=== PATIENT | male | born 1955 | race Caucasian/White ===

== ENCOUNTER → 2016-08-09 | Outpatient (REF) | payer OTHER ==
[2016-08-09 16:01] LABS: MEAN CORPUSCULAR VOLUME 91.6 fl (80.0-96.0); RED CELL DISTRIBUTION WIDTH 11.8 % (11.5-14.5); WHITE BLOOD COUNT 5.5 K/mm3 (4.0-10.0)
[2016-08-09 16:11] LABS: ANION GAP 7 MEQ/L (8-16); BLOOD UREA NITROGEN 18 MG/DL (7-18); CARBON DIOXIDE LEVEL 30 MEQ/L (21-32); CHLORIDE LEVEL 104 MEQ/L (98-107); CREATININE FOR GFR 0.99 MG/DL (0.70-1.30); GLOMERULAR FILTRATION RATE > 60.0 (>49); GLUCOSE, FASTING 83 MG/DL (80-110); MAGNESIUM LEVEL 2.3 MG/DL (1.8-2.4); POTASSIUM SERUM 4.3 MEQ/L (3.5-5.1); SODIUM LEVEL 141 MEQ/L (136-145)
== END ==
LOC: M SFHCPLAZ 14:06
PROVIDERS: ATTEND Family Medicine
DX: I11.9 Hypertensive heart disease without heart failure (principal); I49.3 Ventricular premature depolarization

== ENCOUNTER → 2016-10-09 | Outpatient (CLI) | payer OTHER ==
[2016-10-09 18:40] LABS: ALBUMIN 4.2 GM/DL (3.2-5.2); ALBUMIN/GLOBULIN RATIO 1.35 (1.00-1.93); ALKALINE PHOSPHATASE 50 U/L (45-117); ALT/SGPT 26 U/L (12-78); ANION GAP 6 MEQ/L (8-16); AST/SGOT 17 U/L (15-37); BILIRUBIN,TOTAL 0.6 MG/DL (0.2-1.0); BLOOD UREA NITROGEN 19 MG/DL (7-18); CALCIUM LEVEL 8.7 MG/DL (8.8-10.2); CARBON DIOXIDE LEVEL 28 MEQ/L (21-32); CHLORIDE LEVEL 105 MEQ/L (98-107); CHOLESTEROL LEVEL 172 MG/DL (<200); CREATININE FOR GFR 0.91 MG/DL (0.70-1.30); GLOMERULAR FILTRATION RATE > 60.0 (>49); GLUCOSE, FASTING 80 MG/DL (80-110); POTASSIUM SERUM 4.4 MEQ/L (3.5-5.1); SODIUM LEVEL 139 MEQ/L (136-145); TOTAL PROTEIN 7.3 GM/DL (6.4-8.2); TRIGLYCERIDES LEVEL 154 MG/DL (<150)
[2016-10-09 18:51] LABS: MEAN CORPUSCULAR HEMOGLOBIN 31.6 pg (27.0-33.0); MEAN CORPUSCULAR HGB CONC 34.2 g/dl (32.0-36.5); MEAN CORPUSCULAR VOLUME 92.3 fl (80.0-96.0); PLATELET COUNT, AUTOMATED 215 k/mm3 (150-450); RED CELL DISTRIBUTION WIDTH 12.2 % (11.5-14.5); WHITE BLOOD COUNT 5.5 K/mm3 (4.0-10.0)
[2016-10-09 19:55] LABS: BANDS 1 % (< 11); BASOPHILS 1 % (0-4); EOSINOPHILS 3 % (0-5)
== END ==
LOC: M WUC 12:46
PROVIDERS: ATTEND Family Medicine
DX: D64.9 Anemia, unspecified (principal); R73.01 Impaired fasting glucose; E78.4 Other hyperlipidemia

== ENCOUNTER → 2017-02-01 | Outpatient (CLI) | payer OTHER ==
--- NOTE | 2017-02-04 07:47 | REP ---
PA and lateral chest: Comparison is 12/26/2012. The lung morales are clear. Cardiac size is borderline enlarged, unchanged. The ravindra, mediastinum, and bony thorax are unremarkable. There is no interval change. Impression: There are no acute cardiopulmonary findings. Signed by Ramses Amin MD 02/01/2017 04:22 P
== END ==
LOC: M ADAMS 15:50
PROVIDERS: ATTEND Family Medicine
DX: R05 Cough (principal)

== ENCOUNTER → 2017-02-01 | Outpatient (REF) | payer OTHER ==
[2017-02-01 19:29] LABS: MEAN CORPUSCULAR HEMOGLOBIN 32.7 pg (27.0-33.0); MEAN CORPUSCULAR HGB CONC 34.5 g/dl (32.0-36.5); MEAN CORPUSCULAR VOLUME 94.8 fl (80.0-96.0); WHITE BLOOD COUNT 7.2 K/mm3 (4.0-10.0)
[2017-02-01 20:03] LABS: ANION GAP 8 MEQ/L (8-16); BLOOD UREA NITROGEN 24 MG/DL (7-18); CARBON DIOXIDE LEVEL 28 MEQ/L (21-32); CHLORIDE LEVEL 106 MEQ/L (98-107); CREATININE FOR GFR 0.99 MG/DL (0.70-1.30); GLOMERULAR FILTRATION RATE > 60.0 (>49); GLUCOSE, FASTING 67 MG/DL (80-110); POTASSIUM SERUM 4.3 MEQ/L (3.5-5.1); SODIUM LEVEL 142 MEQ/L (136-145)
[2017-02-01 20:04] LABS: ALBUMIN 4.1 GM/DL (3.2-5.2); ALBUMIN/GLOBULIN RATIO 1.17 (1.00-1.93); ALKALINE PHOSPHATASE 51 U/L (45-117); ALT/SGPT 29 U/L (12-78); AST/SGOT 15 U/L (15-37); BILIRUBIN,TOTAL 0.4 MG/DL (0.2-1.0); FREE T4 0.81 NG/DL (0.76-1.46); TOTAL PROTEIN 7.6 GM/DL (6.4-8.2)
== END ==
LOC: M SFHCADAM 15:45
PROVIDERS: ATTEND Family Medicine
DX: R53.83 Other fatigue (principal)

== ENCOUNTER → 2017-02-15 | Outpatient (CLI) | payer OTHER ==
--- NOTE | 2017-02-18 08:52 | ECHO ---
DATE OF PROCEDURE: 02/15/2017 AGE: 62 GENDER: Male REFERRING PHYSICIAN: Dr. Diez. HEIGHT: 71 inches. WEIGHT: 242 pounds. BODY SURFACE AREA: 2.29 sq m. OUTPATIENT: INDICATION: Dyspnea. MEASUREMENTS: 2D MEASUREMENTS: RV - 3.7 cm LV- 4.5 cm Septum - 1.3 cm Posterior wall - 1.3 cm Aortic root - 4.0 cm LA - 4.5 cm LVEF - 65% DOPPLER MEASUREMENTS: AV - 0.94 m/s LVOT - 0.7 m/s LVOT diameter - 2.8 cm MV-E: 55 A: 62 EA ratio 0.9 Early mitral deacceleration time 215 ms E-prime - 5.6 A-prime - 11 E/E prime ratio 10 PV - 0.6 m/s Pulmonary artery acceleration time 102 ms RVSP - 33 mmHg IVC - 1.6 cm COMMENTS: Normal sinus rhythm without intraventricular conduction disturbance. Technically challenging study in light of the patient's body habitus but diagnostically useful information was still obtained. Mildly dilated left atrium but normal left ventricular size. Right heart chambers were also normal in size. LV wall thickness was mildly increased symmetrically. On real-time imaging from the parasternal and apical projections, wall motion was symmetrical and normal to hyperkinetic. Slightly thickened mitral annulus but normal leaflet thickness and excursion with no posterior systolic buckling. Three equal size aortic cusps with mildly thickened cusp edges but adequate cusp separation. Mildly dilated aortic root. No apparent intracardiac mass or pericardial effusion. Color flow Doppler study taken from the parasternal and apical projection showed trace aortic, trace mitral and very mild tricuspid insufficiency. Guided continuous wave Doppler of his aortic valve showed a normal peak systolic velocity against LV outflow tract obstruction. Pulsed and continuous wave Doppler of his LV inflow tract taken from the apical four-chamber projection showed normal diastolic filling velocities against mitral stenosis. There was slightly more prominent late diastolic/atrial dependent filling pattern. There was a prolonged early mitral deceleration time and tissue Doppler evidence to support a degree of LV diastolic dysfunction but current estimated mean left atrial pressure was within normal limits. Pulsed and continuous wave Doppler of his pulmonary trunk showed a normal peak systolic velocity against RV outflow tract obstruction. His pulmonary artery acceleration time was slightly abbreviated suggestive of a borderline increased pulmonary vascular resistance. Guided continuous wave Doppler of his tricuspid valve allowed our estimation of his right ventricular systolic pressure (mildly increased). His inferior vena cava was of normal size with normal respiratory collapse against an elevated central venous pressure. CONCLUSIONS: Somewhat technically difficult study in light of his body habitus. Mild concentric left ventricle hypertrophy with preserved systolic function. Mildly dilated left atrium with Doppler evidence of an impairment of LV diastolic function but currently normal estimated mean left atrial pressure. Normal right heart chamber sizes and contraction with Doppler evidence of mild pulmonary hypertension. Normal IVC size and collapse against an elevated central venous pressure. Aortic valvular sclerosis with trace insufficiency. Mildly dilated aortic root. Slightly thickened mitral annulus without functional valvular abnormality. In light of his aortic root findings, a followup study would be suggested in 2 years time.
== END ==
LOC: M CARPUL 14:58
PROVIDERS: ATTEND Family Medicine
DX: R06.09 Other forms of dyspnea (principal)

== ENCOUNTER → 2017-10-28 | Outpatient (CLI) | payer OTHER ==
[2017-10-28 09:00] LABS: HEMATOCRIT 40.5 % (42.0-52.0); HEMOGLOBIN 13.9 g/dl (13.5-17.5); MEAN CORPUSCULAR HEMOGLOBIN 31.4 pg (27.0-33.0); MEAN CORPUSCULAR HGB CONC 34.3 g/dl (32.0-36.5); MEAN CORPUSCULAR VOLUME 91.4 fl (80.0-96.0); PLATELET COUNT, AUTOMATED 254 10^3/uL (150-450); RED BLOOD COUNT 4.43 10^6/uL (4.30-6.10); RED CELL DISTRIBUTION WIDTH 12.3 % (11.5-14.5); WHITE BLOOD COUNT 5.4 10^3/uL (4.0-10.0)
[2017-10-28 09:30] LABS: ALBUMIN/GLOBULIN RATIO 1.14 (1.00-1.93); ALKALINE PHOSPHATASE 55 U/L (45-117); ALT/SGPT 24 U/L (12-78); ANION GAP 7 MEQ/L (8-16); AST/SGOT 23 U/L (7-37); BILIRUBIN,TOTAL 0.5 MG/DL (0.2-1.0); BLOOD UREA NITROGEN 21 MG/DL (7-18); CALCIUM LEVEL 8.8 MG/DL (8.8-10.2); CARBON DIOXIDE LEVEL 27 MEQ/L (21-32); CHLORIDE LEVEL 108 MEQ/L (98-107); CHOLESTEROL LEVEL 186 MG/DL (<200); CHOLESTEROL RISK RATIO 5.636 (<5); CREATININE FOR GFR 1.01 MG/DL (0.70-1.30); FREE T4 0.89 NG/DL (0.76-1.46); GLOMERULAR FILTRATION RATE > 60.0 (>49); GLUCOSE, FASTING 123 MG/DL (70-100); HDL CHOLESTEROL 33 MG/DL (>40); LDL CHOLESTEROL 114.4 MG/DL (<100); NON-HDL-C 153 MG/DL; POTASSIUM SERUM 4.4 MEQ/L (3.5-5.1); SODIUM LEVEL 142 MEQ/L (136-145); TOTAL PROTEIN 7.5 GM/DL (6.4-8.2); TRIGLYCERIDES LEVEL 193 MG/DL (<150)
[2017-10-28 09:31] LABS: ESTIMATED AVERAGE GLUCOSE 137 MG/DL (60-110); HEMOGLOBIN A1c 6.4 %
[2017-10-28 11:08] LABS: TOTAL 25(OH) VITAMIN D 11.4 NG/ML (30.0-100.0); VITAMIN B12 LEVEL 369 PG/ML (247-911)
[2017-10-28 11:09] LABS: FOLATE 13.8 NG/ML (>5.4)
== END ==
LOC: M WUC 08:13
DX: R53.83 Other fatigue (principal)
CPT/HCPCS: 82746

== ENCOUNTER → 2018-01-28 | Outpatient (CLI) | payer OTHER ==
[2018-01-28 13:28] LABS: ANION GAP 6 MEQ/L (8-16); BLOOD UREA NITROGEN 23 MG/DL (7-18); CALCIUM LEVEL 8.8 MG/DL (8.8-10.2); CARBON DIOXIDE LEVEL 28 MEQ/L (21-32); CHLORIDE LEVEL 107 MEQ/L (98-107); CREATININE FOR GFR 1.07 MG/DL (0.70-1.30); GLOMERULAR FILTRATION RATE > 60.0 (>49); GLUCOSE, FASTING 116 MG/DL (70-100); POTASSIUM SERUM 4.6 MEQ/L (3.5-5.1); SODIUM LEVEL 141 MEQ/L (136-145)
[2018-01-28 13:57] LABS: TOTAL 25(OH) VITAMIN D 33.5 NG/ML (30.0-100.0)
[2018-01-28 14:46] LABS: ESTIMATED AVERAGE GLUCOSE 126 MG/DL (60-110)
== END ==
LOC: M WUC 09:13
DX: R73.03 Prediabetes (principal); E55.9 Vitamin D deficiency, unspecified
CPT/HCPCS: 83036

== ENCOUNTER → 2018-04-28 | Outpatient (CLI) | payer OTHER ==
[2018-05-05 15:05] LABS: SUMMARY SEE SEPARATE REPORT
== END ==
LOC: M SLEEP 19:31
DX: G47.33 Obstructive sleep apnea (adult) (pediatric) (principal)

== ENCOUNTER → 2018-05-29 | Outpatient (CLI) | payer OTHER | LOC: M ADAMS 08:27 | DX: J01.10 Acute frontal sinusitis, unspecified (principal) | CPT/HCPCS: 71046 ==

== ENCOUNTER → 2018-06-09 | Outpatient (CLI) | payer OTHER | LOC: M CARPUL 10:30 | DX: I77.810 Thoracic aortic ectasia (principal) | CPT/HCPCS: 93306 ==

== ENCOUNTER → 2018-07-02 | Outpatient (CLI) | payer OTHER ==
[~2018-07-02] MED LIST: ISOVUE-370 76% 100ML VIAL (Q9967) As Ordered ONE
--- NOTE | 2018-07-02 19:55 | REP ---
Clinical: Chronic cough Technique: Axial contrast enhanced images from the thoracic inlet to the upper abdomen with coronal and sagittal re-formations using 100 ml Isovue 370 intravenous contrast material. Comparison: None. Findings: Lung morales demonstrate minimal chronic scarring and interstitial changes. Subtle lingular and trace basilar atelectasis cannot be excluded. No focal consolidation. No effusion or pneumothorax. Tracheobronchial tree is patent. No obvious adenopathy. Mediastinum demonstrates atherosclerotic changes to the thoracic aorta and coronary arteries without aortic aneurysm. The heart is upper limits of normal. No pericardial effusion. Musculoskeletal structures demonstrate age-related degenerative changes without focal osseous abnormality. Limited upper abdomen demonstrates normal bilateral adrenal glands and mild fatty infiltration to the liver. Impression: 1. Chronic-appearing age-related interstitial changes and minimal scarring. Superimposed lingular and trace basilar atelectasis cannot be excluded. Electronically Signed by James Page MD 07/02/2018 07:47 P
== END ==
LOC: M RAD 14:10
PROVIDERS: ATTEND Family Medicine
DX: R05 Cough (principal); J98.4 Other disorders of lung
CPT/HCPCS: 71260; Q9967

== ENCOUNTER → 2018-08-22 | Outpatient (CLI) | payer OTHER ==
[2018-08-22 12:32] LABS: HEMOGLOBIN 14.4 g/dl (13.5-17.5); MEAN CORPUSCULAR HEMOGLOBIN 30.8 pg (27.0-33.0); MEAN CORPUSCULAR HGB CONC 32.7 g/dl (32.0-36.5); MEAN CORPUSCULAR VOLUME 94.2 fl (80.0-96.0); PLATELET COUNT, AUTOMATED 267 10^3/uL (150-450); RED BLOOD COUNT 4.67 10^6/uL (4.30-6.10); WHITE BLOOD COUNT 5.9 10^3/uL (4.0-10.0)
[2018-08-22 13:18] LABS: ALT/SGPT 32 U/L (12-78); BILIRUBIN,TOTAL 0.5 MG/DL (0.2-1.0); BLOOD UREA NITROGEN 21 MG/DL (7-18); CALCIUM LEVEL 8.8 MG/DL (8.8-10.2); CARBON DIOXIDE LEVEL 27 MEQ/L (21-32); CHLORIDE LEVEL 104 MEQ/L (98-107); CHOLESTEROL LEVEL 197 MG/DL (<200); CHOLESTEROL RISK RATIO 4.804 (<5); GLOMERULAR FILTRATION RATE > 60.0 (>49); GLUCOSE, FASTING 105 MG/DL (70-100); HDL CHOLESTEROL 41 MG/DL (>40); LDL CHOLESTEROL 103 MG/DL (<100); NON-HDL-C 156 MG/DL; POTASSIUM SERUM 4.8 MEQ/L (3.5-5.1); SODIUM LEVEL 138 MEQ/L (136-145); TOTAL PROTEIN 7.6 GM/DL (6.4-8.2); TRIGLYCERIDES LEVEL 266 MG/DL (<150)
[2018-08-22 13:52] LABS: HEMOGLOBIN A1c 6.8 %
== END ==
LOC: M WUC 09:27
PROVIDERS: ATTEND Family Medicine
DX: D64.9 Anemia, unspecified (principal); R73.03 Prediabetes

== ENCOUNTER → 2019-02-23 | Outpatient (REF) | payer OTHER ==
[2019-02-23 13:45] LABS: APPEARANCE, URINE CLEAR (CLEAR); BACTERIA, URINE AUTO NEGATIVE (NEGATIVE); BILIRUBIN, URINE AUTO NEGATIVE (NEGATIVE); BLOOD, URINE BLOOD NEGATIVE (NEGATIVE); COLOR, URINE YELLOW (YELLOW); GLUCOSE, URINE (UA) AUTO NEGATIVE (NEGATIVE); KETONE, URINE AUTO NEGATIVE (NEGATIVE); LEUKOCYTE ESTERASE, URINE AUTO NEGATIVE (NEGATIVE); MUCUS, URINE SMALL (NEGATIVE); NITRITE, URINE AUTO NEGATIVE (NEGATIVE); PROTEIN, URINE AUTO NEGATIVE (NEGATIVE); RBC, URINE AUTO 3 /HPF (0-3); SPECIFIC GRAVITY URINE AUTO 1.019 (1.002-1.035); SQUAMOUS EPITHELIAL CELL UR AU 0 /HPF (0-6); UROBILINOGEN, URINE AUTO 0.2 mg/dL (0.0-2.0); WBC, URINE AUTO 2 /HPF (0-3)
== END ==
LOC: M SFHCPLAZ 11:50
PROVIDERS: ATTEND Nurse Practitioner Family
DX: R31.9 Hematuria, unspecified (principal)

== ENCOUNTER → 2019-03-06 | Outpatient (CLI) | payer OTHER ==
--- NOTE | 2019-03-06 13:48 | REP ---
RENAL ULTRASOUND: REASON: Gross hematuria. PRIORS: None. FINDINGS: Multiple ultrasonographic images of the right kidney show the right kidney to measure 13.5 x 6.3 x 5.9 cm. The renal cortical echotexture is unremarkable. There are no masses. There is good corticomedullary differentiation. There is no hydronephrosis. There are no perinephric fluid collections. Multiple ultrasonographic images of the left kidney show the left kidney to measure 13.3 x 6 x 7.1 cm. The renal cortical echotexture is unremarkable. There are no masses. There is good corticomedullary differentiation. There is no hydronephrosis. There are no perinephric fluid collections. Imaging of the urinary bladder was obtained for the purpose of assessing urojet phenomenon. Color Doppler imaging shows urojet phenomenon at the UV junction bilaterally. Incidental note was made of a urinary bladder diverticulum. IMPRESSION: Unremarkable renal ultrasonography. Electronically Signed by Damon Short DO 03/06/2019 02:21 P
== END ==
LOC: M RAD 11:10
PROVIDERS: ATTEND Family Medicine
DX: R31.0 Gross hematuria (principal)

== ENCOUNTER → 2019-03-20 | Outpatient (CLI) | payer OTHER ==
[2019-03-20 19:02] LABS: APPEARANCE, URINE CLEAR (CLEAR); BACTERIA, URINE AUTO NEGATIVE (NEGATIVE); BILIRUBIN, URINE AUTO NEGATIVE (NEGATIVE); BLOOD, URINE BLOOD NEGATIVE (NEGATIVE); COLOR, URINE YELLOW (YELLOW); GLUCOSE, URINE (UA) AUTO NEGATIVE (NEGATIVE); KETONE, URINE AUTO NEGATIVE (NEGATIVE); LEUKOCYTE ESTERASE, URINE AUTO NEGATIVE (NEGATIVE); MUCUS, URINE SMALL (NEGATIVE); NITRITE, URINE AUTO NEGATIVE (NEGATIVE); PROTEIN, URINE AUTO NEGATIVE (NEGATIVE); RBC, URINE AUTO 1 /HPF (0-3); SQUAMOUS EPITHELIAL CELL UR AU 0 /HPF (0-6); UROBILINOGEN, URINE AUTO 0.2 mg/dL (0.0-2.0); WBC, URINE AUTO 1 /HPF (0-3)
[2019-03-20 19:12] LABS: BLOOD UREA NITROGEN 20 MG/DL (7-18); CALCIUM LEVEL 8.9 MG/DL (8.8-10.2); CARBON DIOXIDE LEVEL 28 MEQ/L (21-32); CHLORIDE LEVEL 107 MEQ/L (98-107); CREATININE FOR GFR 1.11 MG/DL (0.70-1.30); GLOMERULAR FILTRATION RATE > 60.0 (>49); GLUCOSE, FASTING 104 MG/DL (70-100); POTASSIUM SERUM 4.2 MEQ/L (3.5-5.1); SODIUM LEVEL 141 MEQ/L (136-145)
== END ==
LOC: M SMT 15:55
PROVIDERS: ATTEND Nurse Practitioner Family
DX: R31.0 Gross hematuria (principal); Z12.5 Encounter for screening for malignant neoplasm of prostate
CPT/HCPCS: 36415; 80048; 81001; 87086; 88108; G0103

== ENCOUNTER → 2019-03-26 | Outpatient (CLI) | payer OTHER ==
[2019-03-26 12:18] LABS: BLOOD UREA NITROGEN 21 MG/DL (7-18); CARBON DIOXIDE LEVEL 29 MEQ/L (21-32); CHLORIDE LEVEL 105 MEQ/L (98-107); CREATININE FOR GFR 0.97 MG/DL (0.70-1.30); GLOMERULAR FILTRATION RATE > 60.0 (>49); GLUCOSE, FASTING 102 MG/DL (70-100); POTASSIUM SERUM 4.3 MEQ/L (3.5-5.1); SODIUM LEVEL 141 MEQ/L (136-145)
[2019-03-26 13:19] LABS: HEMOGLOBIN A1c 5.7 %
== END ==
LOC: M WUC 08:27
PROVIDERS: ATTEND Family Medicine
DX: R73.03 Prediabetes (principal)

== ENCOUNTER → 2019-03-26 | Outpatient (CLI) | payer OTHER ==
--- NOTE | 2019-03-26 17:49 | REP ---
CT urography: CT abdomen and pelvis without and with IV contrast: History: Gross hematuria. Comparison renal sonography March 06, 2019. CT contrast dose: 100 ml of intravenous Isovue 370. CT findings: Preliminary digital automation and control engineer radiograph demonstrates an unremarkable bowel gas pattern. The patient is status post L4-5 posterior element fusion with metallic transpedicle screws. There is peribronchovascular consolidation and partial collapse in the posterobasal segment of the left lower lobe. This is new when compared with CT study of the chest July 02, 2018. The lung bases are otherwise clear. The liver and spleen are normal in size and homogeneous in texture. Gallbladder and pancreas are unremarkable. There is a small nodule in the medial limb of the right adrenal gland measuring 1.8 cm in diameter. Mean Hounsfield unit density on the noncontrast CT study within this is 30 Hounsfield units. This is unchanged from the July 02, 2018 study. No left adrenal nodule is appreciated. No retroperitoneal mass or adenopathy is seen. Noncontrast study shows no intrarenal calculus or hydronephrosis. There is no evidence of mass lesion. Postcontrast images demonstrate symmetric renal parenchymal enhancement. Delayed acquisition images show no filling defect in the collecting system. The ureters describe a normal course to the bladder. No hydronephrosis is seen. No bladder mass lesion is seen. There is a fairly large right posterior bladder wall diverticulum. The prostate contains one or two dystrophic calcifications. Seminal vesicles are unremarkable. No abdominal wall defect is seen. Small and large intestinal bowel loops are normal. Bone window settings show no bony destructive lesion. Impression: Fairly large right posterior bladder diverticulum. Stable 1.9 cm right adrenal nodule, unchanged since July 02, 2018. Dystrophic calcifications in a mildly prominent prostate gland. No other genitourinary abnormality seen. Incidental note is made of an infiltrate in the left lower lobe posterior medially. This is new from the prior chest CT study. Suspect pneumonia. Electronically Signed by Oziel Hernandez MD 03/26/2019 06:20 P
== END ==
LOC: M RAD 16:04
PROVIDERS: ATTEND Nurse Practitioner Family
DX: R31.0 Gross hematuria (principal); N32.3 Diverticulum of bladder; N42.0 Calculus of prostate; E27.9 Disorder of adrenal gland, unspecified; R91.8 Other nonspecific abnormal finding of lung field
CPT/HCPCS: 74178; Q9967

== ENCOUNTER → 2019-04-02 | Outpatient (CLI) | payer OTHER ==
[~2019-04-02] MED LIST changes: -ISOVUE-370 76% 100ML VIAL (Q9967) As Ordered ONE; +METHACHOLINE KIT (J7674) INH ONE
--- NOTE | 2019-04-02 09:35 | PFTRPT ---
Height: 72.00 Inches Weight: 245.00 Lbs BSA: 2.32 Diagnosis: R05 DATE OF PROCEDURE: 04/02/2019 ORDERED BY: Dr. Staton INTERPRETATION: Study of excellent technical quality. Under protocol, methacholine was administered. Even after a maximal dose of 25 mg or 188.875 CDUs, no provocation dose ever achieved. IMPRESSION: Negative methacholine challenge study. MTDD
== END ==
LOC: M CARPUL 08:31
PROVIDERS: ATTEND Internal Medicine Pulmonary Disease
DX: R05 Cough (principal)
CPT/HCPCS: 94070; J7674

== ENCOUNTER → 2019-09-24 | Outpatient (CLI) | payer OTHER ==
[2019-09-24 14:15] LABS: BLOOD UREA NITROGEN 20 MG/DL (7-18); CALCIUM LEVEL 9.2 MG/DL (8.8-10.2); CARBON DIOXIDE LEVEL 31 MEQ/L (21-32); CHLORIDE LEVEL 104 MEQ/L (98-107); CREATININE FOR GFR 1.04 MG/DL (0.70-1.30); GLOMERULAR FILTRATION RATE > 60.0 (>49); GLUCOSE, FASTING 109 MG/DL (70-100); POTASSIUM SERUM 4.8 MEQ/L (3.5-5.1); SODIUM LEVEL 139 MEQ/L (136-145)
[2019-09-24 15:12] LABS: HEMOGLOBIN A1c 5.9 %
== END ==
LOC: M WUC 09:35
PROVIDERS: ATTEND Family Medicine
DX: R73.03 Prediabetes (principal)

== ENCOUNTER → 2019-09-29 | Outpatient (REF) | payer OTHER ==
[2019-09-29 12:48] LABS: C REACTIVE PROTEIN QUANTITATIV < 0.30 MG/DL (0.00-0.30); RHEUMATOID FACTOR QUANT < 10.0 IU/ML (<15.0)
[2019-10-01 00:10] LABS: ANA (HEP2) Negative (.); CYCLIC CITRULLINATED PEPTIDE 11 units (0-19)
== END ==
LOC: M SFHCADAM 09:06
PROVIDERS: ATTEND Family Medicine
DX: M15.9 Polyosteoarthritis, unspecified (principal)

== ENCOUNTER → 2019-10-21 | Outpatient (REF) | payer OTHER | LOC: M SFHCRHEU 10:51 | PROVIDERS: ATTEND Internal Medicine | DX: M25.511 Pain in right shoulder (principal); M25.512 Pain in left shoulder ==

== ENCOUNTER → 2019-11-03 | Outpatient (CLI) | payer OTHER ==
--- NOTE | 2019-11-04 04:28 | REP ---
Clinical: Bilateral shoulder pain. Technique: Internal rotation, external rotation, and Y view of the right and left shoulder. Findings: Left shoulder demonstrates mild cortical irregularity and spurring at the acromioclavicular joint as well as blunting to the glenoid rim suggesting mild osteoarthritic degenerative changes. No acute fracture or dislocation. No obvious periarticular calcifications/loose bodies noted. Right shoulder demonstrates moderate cortical irregularity and spurring involving the acromioclavicular joint as well as heterogeneity and spurring along the glenoid rim. Findings consistent with early moderate osteoarthritic changes. No acute fracture or dislocation. No obvious periarticular calcifications/loose bodies noted. Impression: Mild left and early moderate right osteoarthritic degenerative changes. Electronically Signed by James Page MD 11/04/2019 04:19 A
== END ==
LOC: M ADAMS 11:16
PROVIDERS: ATTEND Internal Medicine
DX: M25.511 Pain in right shoulder (principal); M25.512 Pain in left shoulder; M19.011 Primary osteoarthritis, right shoulder; M19.012 Primary osteoarthritis, left shoulder

== ENCOUNTER → 2020-01-11 | Outpatient (CLI) | payer OTHER ==
[2020-01-11 13:15] LABS: FREE T4 0.92 NG/DL (0.76-1.46); THYROID STIMULATING HORMONE 2.64 uIU/ML (0.358-3.740)
== END ==
LOC: M WUC 09:36
PROVIDERS: ATTEND Internal Medicine Pulmonary Disease
DX: R40.0 Somnolence (principal)

== ENCOUNTER → 2020-03-17 | Outpatient (CLI) | payer OTHER ==
[2020-03-17 13:11] LABS: HEMATOCRIT 41.3 % (42.0-52.0); HEMOGLOBIN 13.9 g/dl (13.5-17.5); MEAN CORPUSCULAR HEMOGLOBIN 32.1 pg (27.0-33.0); MEAN CORPUSCULAR HGB CONC 33.7 g/dl (32.0-36.5); MEAN CORPUSCULAR VOLUME 95.4 fl (80.0-96.0); PLATELET COUNT, AUTOMATED 252 10^3/uL (150-450); RED BLOOD COUNT 4.33 10^6/uL (4.30-6.10); WHITE BLOOD COUNT 6.2 10^3/uL (4.0-10.0)
[2020-03-17 13:35] LABS: ALBUMIN 3.9 GM/DL (3.2-5.2); ALT/SGPT 31 U/L (12-78); BILIRUBIN,TOTAL 0.5 MG/DL (0.2-1.0); BLOOD UREA NITROGEN 19 MG/DL (7-18); CALCIUM LEVEL 9.3 MG/DL (8.8-10.2); CARBON DIOXIDE LEVEL 26 MEQ/L (21-32); CHLORIDE LEVEL 107 MEQ/L (98-107); CHOLESTEROL LEVEL 192 MG/DL (<200); CHOLESTEROL RISK RATIO 5.333 (<5); CREATININE FOR GFR 1.06 MG/DL (0.70-1.30); GLOMERULAR FILTRATION RATE > 60.0 (>49); GLUCOSE, FASTING 104 MG/DL (70-100); HDL CHOLESTEROL 36 MG/DL (>40); LDL CHOLESTEROL 119 MG/DL (<100); NON-HDL-C 156 MG/DL; POTASSIUM SERUM 4.8 MEQ/L (3.5-5.1); SODIUM LEVEL 139 MEQ/L (136-145); TOTAL PROTEIN 7.4 GM/DL (6.4-8.2); TRIGLYCERIDES LEVEL 183 MG/DL (<150)
[2020-03-17 14:00] LABS: HEMOGLOBIN A1c 5.9 %
== END ==
LOC: M WUC 09:37
PROVIDERS: ATTEND Family Medicine
DX: G47.33 Obstructive sleep apnea (adult) (pediatric) (principal); E78.5 Hyperlipidemia, unspecified; R73.03 Prediabetes; Z12.5 Encounter for screening for malignant neoplasm of prostate
CPT/HCPCS: 36415; 80053; 80061; 83036; 85027; G0103

== ENCOUNTER → 2020-03-23 | Outpatient (REF) | payer OTHER ==
[2020-03-23 13:27] LABS: APPEARANCE, URINE CLEAR (CLEAR); BACTERIA, URINE AUTO NEGATIVE (NEGATIVE); BILIRUBIN, URINE AUTO NEGATIVE (NEGATIVE); BLOOD, URINE BLOOD NEGATIVE (NEGATIVE); COLOR, URINE YELLOW (YELLOW); GLUCOSE, URINE (UA) AUTO NEGATIVE (NEGATIVE); KETONE, URINE AUTO NEGATIVE (NEGATIVE); LEUKOCYTE ESTERASE, URINE AUTO 1+ (NEGATIVE); MUCUS, URINE SMALL (NEGATIVE); NITRITE, URINE AUTO NEGATIVE (NEGATIVE); PROTEIN, URINE AUTO NEGATIVE (NEGATIVE); RBC, URINE AUTO 2 /HPF (0-3); SPECIFIC GRAVITY URINE AUTO 1.017 (1.002-1.035); SQUAMOUS EPITHELIAL CELL UR AU 0 /HPF (0-6); UROBILINOGEN, URINE AUTO 0.2 mg/dL (0.0-2.0); WBC, URINE AUTO 19 /HPF (0-3)
== END ==
LOC: M LAB REF 12:44
PROVIDERS: ATTEND Family Medicine
DX: R30.0 Dysuria (principal)

== ENCOUNTER → 2020-06-21 | Outpatient (CLI) | payer SELFPAY | LOC: M LABSMTC 17:58 | PROVIDERS: ATTEND Pediatrics | DX: Z11.59 Encounter for screening for other viral diseases (principal) ==

== ENCOUNTER → 2020-08-05 | Outpatient (CLI) | payer OTHER ==
[~2020-08-05] MED LIST changes: +BAYE81TA10 PO; +EZET10TA21 PO; +FENO145T7 PO; +LOSA100T50 PO; +METF-838; -METHACHOLINE KIT (J7674) INH ONE; +NORV5TAB PO; +PANT40TA29 PO; +VITA200020 PO
== END ==
LOC: M LABSMTC 10:14
PROVIDERS: ATTEND Anesthesiology
DX: Z01.812 Encounter for preprocedural laboratory examination (principal); Z20.822 Contact with and (suspected) exposure to COVID-19

== ENCOUNTER 2020-08-10 09:54 | Day surgery (SDC) | payer OTHER ==
[~2020-08-10] VITALS: Ht 180.3 cm; Wt 106.6 kg
[~2020-08-10 09:54] MED LIST changes: +NS 1,000 ML IV ONE
--- OUTSIDE RECORDS SUMMARY | 2020-08-10 09:59 | CCD | Continuity of Care Document ---
Author Author Angel KIRK Organization Unknown Address [address] [place] [address] Phone [phone] Problems Active Problems Provider Date Pure hypercholesterolemia Onset: 015 Essential hypertension JOHN Thomason Onset: 04/02/2019 Social History Type Date Description Comments Sex Unknown ETOH Use Drinks Alcoholic Beverages Rarel y Tobacco Use Start: Unknown Denies Smoking Smoking Status Reviewed: 07/20/19 Denies Smoking Allergies, Adverse Reactions, Alerts Active Allergies Reaction Severity Comments Date Augmentin 03/22/2015 sulfa drugs 09/09/2015 Medications Active Medications SIG Qnty Indications Ordering Provide r Date Euflexxa 20mg/2ML Soln Prefill Syr annalee josi knee euflexxa #1 07/22/2019 iid/rs josi. knee euflexxa #2 iid/mm 07/29/2019 josi knee #3 08/06/2019 iid/sw Charlie Richards MD 02/2020 Benzonatate 100mg Capsules Take Two Capsules By Mouth Every Morning 1 Capsule AT 3 00PM And 1 Capsule AT 10 00PM Unknown Ipratropium Amity 0.06% Solution Instill 2 Sprays Into Each Nostril Two Times A Day Unkno wn Erythromycin 5mg/GM Ointment Apply 1 CM Ribbon To Left Eye Every 4 6 Hours For 7 Days Un known Sulfacetamide Sodium 10% Solution Instill 2 Drops Into Affected Eye Four Times A Day Unkno wn Ketotifen Fumarate 0.025% Solution Instill 1 Drop Into Affected Eye Two Times A Day Unknown Tobradex 0.3-0.1% Ointment Apply A Thin Bead To Both Eyes AT Bedtime Unknown Cephalexin 500mg Capsules Take One Capsule By Mouth Twice A Day Unknown Sildenafil Citrate 100mg Tablets Take One Half To One Tablet By Mouth as Needed Once A Day Unknown Pantoprazole Sodium 40mg Tablets D R Take One Tablet By Mouth Two Times A Day Unknown Omeprazole 40mg Capsules DR Unknown Metformin HCL 500mg Tablets Unknown Losartan Potassium 100mg Tablets Unknown Fenofibrate 150mg Capsules Unknown Amlodipine Besylate 5mg Tablets Unknown Ezetimibe 10mg Tablets Unknown Vitamin D3 25mcg Tablets Unknown Aspirin 81mg Tablets DR 1 by mouth every day Unknown Immunizations Description No Information Available Vital Signs Date Vital Result Comment 07/26/2020 10:31am Body Temperature 97.3 F Height 72 inches 6'0" Weight 247.00 lb BMI (Body Mass Index) 33.5 kg/m2 04/02/2019 3:32pm Height 71.5 inches 5'11.50" Weight 225.00 lb BMI (Body Mass Index) 30.9 kg/m2 Results Description No Information Available Procedures Date Code Description Status 07/26/2020 64491 X-Ray Knee Complete W/Obliques & Tunnel And/Or Standing Views Completed 07/26/2020 00187 X-Ray Knee Complete W/Obliques & Tunnel And/Or Standing Views Completed 07/26/202011100 Inject/Drain Joint/Bursa Major C ompleted 07/26/202052740 Inject/Drain Joint/Bursa Major C ompleted 04/08/202011202 Inject/Drain Joint/Bursa Major C ompleted 04/08/202027393 Inject/Drain Joint/Bursa Major C ompleted Medical Devices Description No Information Available Encounters Type Date Location Provider Dx Diagnosis Office Visit 07/26/2020 9:45a JOHN Guajardo M17.0 Bilateral primary osteoarthritis of knee Office Visit 04/08/2020 9:45a JOHN Guajardo M17.0 Bilateral primary osteoarthritis of knee Assessments Date Code Description Provider 07/26/2020 M17.0 Bilateral primary osteoarthritis of knee JOHN Thomason 04/08/2020 M17.0 Bilateral primary osteoarthritis of knee JOHN Thomason Plan of Treatment Future Appointment(s):* 08/16/2020 11:30 am - JOHN Thomason at [facility] 07/26/2020 - JOHN Thomason* M17.0 Bilateral primary osteoarthritis of knee * Follow up:* 4 months with DPV or SBF for possible knee surg eval 2-3 weeks with IID for neck eval Functional Status Description No Information Available Mental Status Description No Information Available Referrals Refer to Dr Reason for Referral Status Appt Date Zan Kirk I, Pac EUFLEXXA [id number] JOSI Davis, NO AUTH REQD BASED ON [facility],..[place] Created [address] [place] [address] [phone]
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
--- OUTSIDE RECORDS SUMMARY | 2020-08-10 09:59 | CCD | Continuity of Care Document ---
Author Author Angel SWANSON M.D. Organization Unknown Address [address] [place] [address] Phone [phone] Care Team Providers Care Community Relations Rep Name Role Phone Randal Diez M.D. AUTM [phone] Problems Active Problems Provider Date Gastroesophageal reflux disease Mauricio Swanson M.D. Ons et: 07/28/2020 History of polyp of colon Jessa Mei Onset: Social History Type Date Description Comments Sex Unknown ETOH Use Occasionally Tobacco Use Start: Unknown Patient has never smoked Allergies, Adverse Reactions, Alerts Active Allergies Reaction Severity Comments Date Sulfa Antibiotics 12/31/2011 Medications Active Medications SIG Qnty Indications Ordering Provide r Date Gaviscon Extra Strength 160-105mg Chewtabs 1 tab by mouth four times a day before meals,and at bedtime 360u nits Mauricio Swanson M.D. 07/28/2020 Sutab [id number] Tablets as directed 1box Mauricio Swanson M.D. 07/28/2020 Aspirin 81mg Tablets Unknown Metformin HCL ER 500mg Tablets ER 24HR Take Two Tablets By Mouth Once A Day Unknown Fenofibrate 145mg Tablets Take One Tablet By Mouth Once A Day AT Bedtime Unknown 0 Ezetimibe 10mg Tablets Take One Tablet By Mouth Once A Day Unknown Losartan Potassium 100mg Tablets Take One Tablet By Mouth Once A Day Unknown Amlodipine Besylate 5mg Tablets Take One Tablet By Mouth Once A Day Unknown Pantoprazole Sodium 40mg Tablets D R Take One Tablet By Mouth Two Times A Day Unknown Immunizations Description No Information Available Vital Signs Date Vital Result Comment 07/28/2020 1:39pm Height 71 inches 5'11" Weight 248.00 lb BP Systolic 139 mmHg BP Diastolic 79 mmHg Heart Rate 50 /min BMI (Body Mass Index) 34.6 kg/m2 Weight 112.493 kg Body Temperature 96.8 F 09/02/2014 3:32pm Height 71 inches 5'11" Weight 255.00 lb BP Systolic 126 mmHg BP Diastolic 86 mmHg Heart Rate 66 /min BMI (Body Mass Index) 35.6 kg/m2 Weight 115.668 kg Results Description No Information Available Procedures Description No Information Available Medical Devices Description No Information Available Encounters Type Date Location Provider Dx Diagnosis Office Visit 07/28/2020 1:30p Main Office Mauricio Swanson M.D. Z 86.010 Personal history of colonic polyps R12 Heartburn Assessments Date Code Description Provider 07/28/2020 Z86.010 Personal history of colonic poly ps Mauricio Swanson M.D. 07/28/2020 R12 Heartburn Mauricio hadley M.D. Plan of Treatment Future Appointment(s):* 08/03/2020 7:30 am - Boris at Main Office * 08/10/2020 11:00 am - Mauricio Swanson M.D. at Main Office 07/28/2020 - Mauricio Swanson M.D.* Z86.010 Personal history of colonic polyps* Comments:* 65 yo wm who presents for a colonoscopy due to a h/o colonic polyps, and an egd for heartburn. Last scope was in 2014. No c/o abdominal pain, weight loss, change in bowel habits, or rectal bleeding. No family h/o colon cancer. No h/o chest pain, or sob. Plan:1. Schedule patient for Colonoscopy + egd.2. Informed consent given.3. Advised to stop asa, plavix,and anticoagulation 3 to 7 days prior to the procedures. * R12 Heartburn* Comments:* Schedule EGD.Informed consent given. Functional Status Description No Information Available Mental Status Description No Information Available Referrals Description No Information Available
--- OUTSIDE RECORDS SUMMARY | 2020-08-10 09:59 | CCD ---
Author Author [facility] Organization [facility] ems Address Unknown Phone Unavailable Care Team Providers Care Issuer Name Role Phone Randal Diez Unavailable PROBLEMS Type Condition ICD9-CM Code [id number] Code Onset Dates Condition S tatus SNOMED Code Notes Problem Benign neoplasm of colon, unspecified D12.6 Ac tive 47159938 Problem Anemia, unspecified D64.9 Active 616077582 Problem Encounter for screening for malignant neoplasm of prostate Z12.5 Active 923021859 Problem Obstructive sleep apnea (adult) (pediatric) G47.33 Active 06563993 Problem Hearing loss, unspecified hearing loss type, uns pecified laterality H91.90 Active 53001188 Problem 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 Active 869942 005 Problem Dilated aortic root I77.810 Active 838449587 Problem PVCs (premature ventricular contractions) I49.3 Active 01675126 Problem Vitamin D deficiency E55.9 Active 61226968 Problem Bigeminy I49.9 Active 29498035 Problem Allergic sinusitis J30.9 Active 24400893 Problem Plantar wart, right foot B07.0 Active 1094678 6726138406 Problem Restrictive lung disease J98.4 Active 4894979 5 Problem Chronic cough R05 Active 50095526 Problem Gross hematuria R31.0 Active 208325735 Problem Bladder diverticulum N32.3 Active 119206661 Problem Circadian rhythm sleep disorder, 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 Active 013076808 Problem Primary osteoarthritis of both knees M17.0 Act huan 892255974 Problem Prediabetes R73.03 Active 175452870 Problem Erectile dysfunction, unspecified erectile dysfunction typ e N52.9 Active 375848726 Problem Hyperlipidemia, unspecified E78.5 Active 5582 2004 Problem Hypertensive heart disease without heart failure I 11.9 Active 77314619 Problem Other sleep disorders not du e to a substance or known physiological condition F51.8 Active 821172255 Problem Generalized osteoarthrosis, involving multiple sites M15.9 Active 295974485 Problem Primary osteoarthritis of both hips M16.0 Acti ve 314035653 Problem Psoriasis L40.9 Active 2585882 ALLERGIES Allergen (clinical drug ingredient) Drug/Non Drug Allergy do cumented on EMR Reaction Allergy Type Onset Date Status lescol myositis--elev CPK Non Drug Allergy Active amoxicillin / clavulanate Augmentin([facility] Code:[address]-67) Naus ea/Vomiting Drug Allergy Active penicillin nausea Non Drug Allergy Active sulfa rash Non Drug Allergy Active ENCOUNTERS from 1956 to 2020-05-11 Encounter Location Date Provider Diagnosis [address] [place] [address] Apr, Nathanael Diez Hypertensive heart disease without heart failure I11.9 ; Erectile dysfunction, unspecified erectile dysfunction type N52.9 ; Hyperlipidemia, unspecified E78.5 ; Chronic cough R05 ; Prediabetes R73.03 and Encounter for immunization Z23 IMMUNIZATIONS Vaccine Route Administration Date Status Influenza [...] Education Language: Question Answer Notes Languages spoken: Green[place]ic Drug and Alcohol Question Answer Notes Total Score: 0 Interpretation: No problems reported Alcohol Screening: Question Answer Notes Did you have a drink containing alcohol in the past year? No Points 0 Interpretation Negative BMI Care Goal Follow-Up Question Answer Notes Above Normal BMI Follow-Up Giving encouragement to exercise REASON FOR REFERRAL No Information VITAL SIGNS Weight 246 lbs Apr, Height 71 in Apr, BMI 34.31 kg/m2 Apr, Heart Rate 83 /min Apr, Respiratory Rate 18 /min Apr, Temperature 97.4 degrees Fahrenheit Apr, Oximetry 96 Apr, Blood pressure systolic 138 mm Hg Apr, Blood pressure diastolic 76 mm Hg Apr, MEDICATIONS Medication SIG (Take, Route, Frequency, Duration) Start Date En d Date Status Viagra 100 MG 1/2 - 1 tablet as needed Orally Once a d ay for 90 day(s) Apr, Active Benzonatate 100 MG 1 [...] Orally Once a day for 30 day(s) 19 2017 Active Protonix 40 MG 1 tablet Orally bid for 90 day(s) Sep, Active Losartan Potassium 100 MG 1 tablet Orally Once a day for 90 Active PROCEDURES Procedure Date Ordered Result Body Site Immunization: Flublok Quadrivalent (18 years & older) 0.5mL IM (Influenza) 2020-04-29 N/A RESULTS No Results REASON FOR VISIT 6 week MEDICAL (GENERAL) HISTORY Type Description Date Medical History hyperlipidemia Medical History Obstructive sleep apnea-- se es LITO/Shemar, last CPAP titration 06/01. Is fatrigued and excessive somnolence without any response to provigil from [place]. Has abscence of N3 (slow wave) sleep [...] No Information FUNCTIONAL STATUS No Information ASSESSMENTS Encounter Date Diagnosis Notes Apr, Hypertensive heart disease without heart failure (ICD-10 - I11.9) Apr, Encounter for immunization (ICD-10 - Z23 ) Apr, Prediabetes (ICD-10 - R73.03) Apr, Hyperlipidemia, unspecified (ICD-10 - E7 8.5) Apr, Erectile dysfunction, unspec ified erectile dysfunction type (ICD-10 - N52.9) Apr, Chronic cough (ICD-10 - R05) PLAN OF TREATMENT Medication Medication Name Sig [...] ONCE A DAY AT BEDTIME or 90 Next Appt Details 6 Months Reason: Insurance Providers Payer Name Payer Address Payer Phone Insured Name Patient Relati onship to Insured Coverage Start Date Coverage End Date [facility] [address] [id number] [facility] [id number] KHRIS LEE
--- OUTSIDE RECORDS SUMMARY | 2020-08-10 09:59 | CCD ---
Author Author [facility] Organization [facility] Address Unknown Phone Unavailable Care Team Providers Care Seaman Officer Name Role Phone Rex Swanson MD Unavailable Unavailable Rex Swanson MD Unavailable Unavailable Rex Swanson MD Unavailable Unavailable Rex Swanson MD Unavailable Unavailable Rex Swanson MD Unavailable Unavailable Rex Swanson MD Unavailable Unavailable Rex Swanson MD Unavailable Unavailable Rex Swanson MD Unavailable Unavailable Rex Swanson MD Unavailable Unavailable Rex Swanson MD Unavailable Unavailable Rex Swanson MD Unavailable Unavailable Rex Swanson MD Unavailable Unavailable Rex Swanson MD Unavailable Unavailable Rex Swanson MD Unavailable Unavailable Rex Swanson MD Unavailable Unavailable Rex Swanson MD Unavailable Unavailable Rex Swanson MD Unavailable Unavailable Rex Swanson MD Unavailable Unavailable Rex Swanson MD Unavailable Unavailable Rex Swanson MD Unavailable Unavailable Rex Swanson MD Unavailable Unavailable Rex Swanson MD Unavailable Unavailable Rex Swanson MD Unavailable Unavailable Rex Swanson MD Unavailable Unavailable Rex Swanson MD Unavailable Unavailable Rex Swanson MD Unavailable Unavailable Rex Swanson MD Unavailable Unavailable Rex Swanson MD Unavailable Unavailable Rex Swanson MD Unavailable Unavailable Rex Swanson MD Unavailable Unavailable Rex Swanson MD Unavailable Unavailable Rex Swanson MD Unavailable Unavailable Rex Swanson MD Unavailable Unavailable Rex Swanson MD Unavailable Unavailable Rex Swanson MD Unavailable Unavailable Rex Swanson MD Unavailable Unavailable Rex Swanson MD Unavailable Unavailable Rex Swanson MD Unavailable Unavailable Rex Swanson MD Unavailable Unavailable Rex Swanson MD Unavailable Unavailable Rex Swanson MD Unavailable Unavailable Rex Swanson MD Unavailable Unavailable Rex Swanson MD Unavailable Unavailable Rex Swanson MD Unavailable Unavailable Rex Swanson MD Unavailable Unavailable Rex Swanson MD Unavailable Unavailable Rex Swanson MD Unavailable Unavailable Rex Swanson MD Unavailable Unavailable DRAZEK, I ALIE PA Unavailable Unavailable DRAZEK, I ALIE PA Unavailable Unavailable DRAZEK, I ALIE PA Unavailable Unavailable DRAZEK, I ALIE PA Unavailable Unavailable DRAZEK, I ALIE PA Unavailable Unavailable DRAZEK, I ALIE PA Unavailable Unavailable DRAZEK, I ALIE PA Unavailable Unavailable DRAZEK, I ALIE PA Unavailable Unavailable DRAZEK, I ALIE PA Unavailable Unavailable DRAZEK, I ALIE PA Unavailable Unavailable DRAZEK, I ALIE PA Unavailable Unavailable DRAZEK, I ALIE PA Unavailable Unavailable DRAZEK, I ALIE PA Unavailable Unavailable DRAZEK, I ALIE PA Unavailable Unavailable DRAZEK, I ALIE PA Unavailable Unavailable DRAZEK, I ALIE PA Unavailable Unavailable DRAZEK, I ALIE PA Unavailable Unavailable DRAZEK, I ALEI PA Unavailable Unavailable DRAZEK, I ALIE PA Unavailable Unavailable DRAZEK, I ALIE PA Unavailable Unavailable DRAZEK, I ALIE PA Unavailable Unavailable DRAZEK, I ALIE PA Unavailable Unavailable DRAZEK, I ALIE PA Unavailable Unavailable DRAZEK, I ALIE PA Unavailable Unavailable DRAZEK, I ALIE PA Unavailable Unavailable DRAZEK, I ALIE PA Unavailable Unavailable DRAZEK, I ALIE PA Unavailable Unavailable DRAZEK, I ALIE PA Unavailable Unavailable DRAZEK, I LAIE PA Unavailable Unavailable DRAZEK, I ALIE PA Unavailable Unavailable Tosin Graves MD Unavailable Unavailable Tosin Graves MD Unavailable Unavailable Tosin Graves MD Unavailable Unavailable Tosin Graves MD Unavailable Unavailable Tosin Graves MD Unavailable Unavailable Tosin Graves MD Unavailable Unavailable Tosin Graves MD Unavailable Unavailable Tosin Graves MD Unavailable Unavailable Abriss, Tosin Choudhary MD Unavailable Unavailable Abriss, Tosin Choudhary MD Unavailable Unavailable Abriss, Tosin Choudhary MD Unavailable Unavailable Abriss, Tosin Choudhary MD Unavailable Unavailable Abriss, Tosin Choudhary MD Unavailable Unavailable Abriss, Tosin Choudhary MD Unavailable Unavailable Abriss, Tosin Choudhary MD Unavailable Unavailable Abriss, Tosin Choudhary MD Unavailable Unavailable Abriss, Tosin Choudhary MD Unavailable Unavailable Abriss, Tosin Choudhary MD Unavailable Unavailable CORRY, CHON PA Unavailable Unavailable CORRY, CHON PA Unavailable Unavailable CORRY, CHON PA Unavailable Unavailable CORRY, CHON PA Unavailable Unavailable CORRY, CHON PA Unavailable Unavailable CORRY, CHON PA Unavailable Unavailable CORRY, CHON PA Unavailable Unavailable CORRY, CHON PA Unavailable Unavailable CORRY, CHON PA Unavailable Unavailable CORRY, CHON PA Unavailable Unavailable CORRY, CHON PA Unavailable Unavailable CORRY, CHON PA Unavailable Unavailable CORRY, CHON PA Unavailable Unavailable CORRY, CHON PA Unavailable Unavailable CORRY, CHON PA Unavailable Unavailable CORRY, CHON PA Unavailable Unavailable CORRY, CHON PA Unavailable Unavailable CORRY, CHON PA Unavailable Unavailable CORRY, CHON PA Unavailable Unavailable CORRY, CHON PA Unavailable Unavailable CORRY, CHON PA Unavailable Unavailable CORRY, CHON PA Unavailable Unavailable CORRY, CHON PA Unavailable Unavailable CORRY, CHON PA Unavailable Unavailable CORRY, CHON PA Unavailable Unavailable CORRY, CHON PA Unavailable Unavailable CORRY, CHON PA Unavailable Unavailable CORRY, CHON PA Unavailable Unavailable CORRY, CHON PA Unavailable Unavailable CORRY, CHON PA Unavailable Unavailable CORRY, CHON PA Unavailable Unavailable CORRY, CHON PA Unavailable Unavailable CORRY, CHON PA Unavailable Unavailable CORRY, CHON PA Unavailable Unavailable CORRY, CHON PA Unavailable Unavailable CORRY, CHON PA Unavailable Unavailable CORRY, CHON PA Unavailable Unavailable CORRY, CHON PA Unavailable Unavailable SEARS, A EUSEBIA DO Unavailable Unavailable SEARS, A EUSEBIA DO Unavailable Unavailable SEARS, A EUSEBIA DO Unavailable Unavailable SEARS, A EUSEBIA DO Unavailable Unavailable SEARS, A EUSEBIA DO Unavailable Unavailable SEARS, A EUSEBIA DO Unavailable Unavailable SEARS, A EUSEBIA DO Unavailable Unavailable SEARS, A EUSEBIA DO Unavailable Unavailable SEARS, A EUSEBIA DO Unavailable Unavailable SEARS, A EUSEBIA DO Unavailable Unavailable SEARS, A EUSEBIA DO Unavailable Unavailable SEARS, A EUSEBIA DO Unavailable Unavailable SEARS, A EUSEBIA DO Unavailable Unavailable SEARS, A EUSEBIA DO Unavailable Unavailable SEARS, A EUSEBIA DO Unavailable Unavailable SEARS, A EUSEBIA DO Unavailable Unavailable SEARS, A EUSEBIA DO Unavailable Unavailable SEARS, A EUSEBIA DO Unavailable Unavailable SEARS, A EUSEBIA DO Unavailable Unavailable SEARS, A EUSEBIA DO Unavailable Unavailable SEARS, A EUSEBIA DO Unavailable Unavailable SEARS, A EUSEBIA DO Unavailable Unavailable SEARS, A EUSEBIA DO Unavailable Unavailable SEARS, A EUSEBIA DO Unavailable Unavailable SEARS, A EUSEBIA DO Unavailable Unavailable SEARS, A EUSEBIA DO Unavailable Unavailable SEARS, A EUSEBIA DO Unavailable Unavailable SEARS, A EUSEBIA DO Unavailable Unavailable SEARS, A EUSEBIA DO Unavailable Unavailable SEARS, A EUSEBIA DO Unavailable Unavailable SEARS, A EUSEBIA DO Unavailable Unavailable SEARS, A EUSEBIA DO Unavailable Unavailable SEARS, A EUSEBIA DO Unavailable Unavailable SEARS, A EUSEBIA DO Unavailable Unavailable SEARS, A EUSEBIA DO Unavailable Unavailable SEARS, A EUSEBIA DO Unavailable Unavailable SEARS, A EUSEBIA DO Unavailable Unavailable SEARS, A EUSEBIA DO Unavailable Unavailable SEARS, A EUSEBIA DO Unavailable Unavailable SEARS, A EUSEBIA DO Unavailable Unavailable SEARS, A EUSEBIA DO Unavailable Unavailable SEARS, A EUSEBIA DO Unavailable Unavailable SEARS, A EUSEBIA DO Unavailable Unavailable SEARS, A EUSEBIA DO Unavailable Unavailable SEARS, A EUSEBIA DO Unavailable Unavailable SEARS, A EUSEBIA DO Unavailable Unavailable Re-disclosure Warning The records that you are about to access may contain information from federally-assisted alcohol or drug abuse programs. If such information is present, then the following federally mandated warning applies: This information has been disclosed to you from records protected by federal confidentiality rules (42 CFR part 2). The federal rules prohibit you from making any further disclosure of this information unless further disclosure is expressly permitted by the written consent of the person to whom it pertains or as otherwise permitted by 42 CFR part 2. A general authorization for the release of medical or other information is NOT sufficient for this purpose. The Federal rules restrict any use of the information to criminally investigate or prosecute any alcohol or drug abuse patient.The records that you are about to access may contain highly sensitive health information, the redisclosure of which is protected by Article 27-F of the [facility] Public Health law. If you continue you may have access to information: Regarding HIV / AIDS; Provided by facilities licensed or operated by the [facility] Office of Mental Health; or Provided by the [facility] Office for People With Developmental Disabilities. If such information is present, then the following [facility] mandated warning applies: This information has been disclosed to you from confidential records which are protected by state law. State law prohibits you from making any further disclosure of this information without the specific written consent of the person to whom it pertains, or as otherwise permitted by law. Any unauthorized further disclosure in violation of state law may result in a fine or halfway sentence or both. A general authorization for the release of medical or other information is NOT sufficient authorization for further disc losure. Allergies and Adverse Reactions Type Description Substance Reaction Status Data Source(s ) Drug allergy Augmentin amoxicillin / clavulanate Nausea/Vomiting Ac tive eCW1 ([facility]) sulfa sulfa sulfa rash Active eCW1 ([facility]) penicillin penicillin penicillin nausea Active eCW1 ([facility]) lescol lescol fluvastatin 40 MG Oral Capsule [Lescol] m yositis--elev CPK Active eCW1 ([facility]) lescol lescol fluvastatin 40 MG Oral Capsule [Lescol] m yositis--elev CPK Active eCW1 ([facility]) sulfa sulfa sulfa rash Active eCW1 ([facility]) penicillin penicillin penicillin nausea Active eCW1 ([facility]) sulfa sulfa sulfa rash Active eCW1 ([facility]) penicillin penicillin penicillin nausea Active eCW1 ([facility]) lescol lescol fluvastatin 40 MG Oral Capsule [Lescol] m yositis--elev CPK Active eCW1 ([facility]) Family History Family Member Name Family Member Gender Family Member Status Date o f Status Description Data Source(s) Unknown Unknown Problem MEDENT ([facility]) Unknown Male Problem MEDENT ([facility]) Unknown Female Problem MEDENT ([facility]) Encounters Encounter Providers Location Date Indications Data Source(s ) Outpatient Attender: Mauricio Swanson MD Main Office 07/28/2020 12:30:00 PM EST MEDENT ([facility]) Outpatient Attender: ALIE LOPEZ Physical Therapy 07/26/2020 0 8:45:00 AM EST MEDENT ([facility]) [place] [address] [facility] [place] [address] 05/25/2020 12:00:00 AM EST eCW1 ([facility]) Outpatient [address] [facility] [address] 04/29/2020 12:00:00 AM EDT eCW1 ([facility]) Outpatient Attender: ALIE LOPEZ Physical Therapy 04/08/2020 0 9:45:00 AM EDT MEDENT ([facility]) Outpatient [address] [facility] [address] 12/31/2019 12:00:00 AM EDT eCW1 ([facility]) Outpatient Attender: CHON Palmaa ry 12/28/2019 04:35:00 PM EDT MEDENT ([facility]) Unknown [address] [facility] [address] 12/21/2019 12:00:00 AM EDT eCW1 ([facility]) Outpatient Attender: EUSEBIA Alfredo/Junaid/Spencer/Reindl 11/18/2019 02:30:00 PM EDT MEDENT ([facility]) Outpatient Attender: Kenrick Brown/Junaid/Spencer/Re indl 11/03/2019 10:15:00 AM EDT MEDENT ([facility]) [facility] [address] [place] [address] 10/21/2019 12:00:00 AM EDT eCW1 ([facility]) [facility] [address] [facility] [address] 10/15/2019 12:00:00 AM EDT eCW1 ([facility]) [facility] [place] [address] [facility] [place] [address] 10/14/2019 12:00:00 AM EDT eCW1 ([facility]) [facility] [place] [address] [facility] [place] [address] 09/30/2019 12:00:00 AM EDT eCW1 ([facility]) [facility] [place] [address] [facility] [place] [address] 09/29/2019 12:00:00 AM EDT eCW1 ([facility]) [facility] [place] [address] [facility] [place] [address] 09/29/2019 12:00:00 AM EDT eCW1 ([facility]) [facility] [place] [address] [facility] [place] [address] 08/05/2019 12:00:00 AM EST eCW1 ([facility]) Outpatient Attender: ALIE LOPEZ Physical Therapy 07/20/2019 0 1:00:00 PM EST MEDENT ([facility]) Immunizations Vaccine Date Status Description Data Source(s) influenza, recombinant, quadrIvalent,injectable, prese rvative free 04/29/2020 04:58:00 PM EDT completed eCW1 ([facility]) influenza, recombinant, quadrIvalent,injectable, prese rvative free 04/29/2020 04:58:00 PM EDT completed eCW1 ([facility]) INFLUENZA VIRUS VACCINE QUADRIVAL [id number](6 MOS AND UP)/PF 07/10/2019 12:00:00 AM EST completed [facility] Medications Medication Brand Name Start Date Product Form Dose Route Admi nistrative Instructions Pharmacy Instructions Status Indications Reaction Description Data Source(s) 1.479-0.188 gram 08/08/2020 12:00:00 AM EST tablet 24 USE DIRECTED USE DIRECTED SOLD: 08/08/2020 [facility] Sutab Sutab 07/28/2020 12:00:00 AM EST active MEDENT ([facility]) Aluminum Hydroxide 160 MG / magnesium carbonate 105 MG Chewable Tablet Gaviscon Extra Strength 07/28/2020 12:00:00 AM EST ORAL active MEDENT ([facility]) sildenafil 100 MG Oral Tablet [Viagra] Viagra 100 MG Viagra 100 MG 04/29/2020 12:00:00 AM EDT active Viagra 1 00 MG eCW1 ([facility]) sildenafil 100 MG Oral Tablet [Viagra] Viagra 100 MG Viagra 100 MG 04/29/2020 12:00:00 AM EDT active Viagra 1 00 MG eCW1 ([facility]) Cephalexin 500 MG Oral Capsule CEPHALEXIN 03/23/2020 12:00:00 AM EDT capsule 20 TAKE ONE CAPSULE BY MOUTH TWICE A DAY TAKE ONE CAPSULE BY MO UT TWICE A DAY SOLD: 03/23/2020 [facility] 0.3-0.1 % 01/13/2020 12:00:00 AM EDT ointment 3 APPLY A THIN BEAD TO BOTH EYES AT BEDTIME APPLY A THIN BEAD TO BOTH EYES AT BEDTIME SOLD: 01/13/2020 [facility] 10 % 12/31/2019 12:00:00 AM EDT drops 15 INSTILL 2 DROPS INTO AFFECTED EYE FOUR TIMES A DAY INSTILL 2 DROPS INTO AFFECTED EYE FOUR TIMES A DAY SERVANDO [facility] 0.025 % (0.035 %) 12/31/2019 12:00:00 AM EDT drops 5 INSTILL 1 DROP INTO AFFECTED EYE TWO TIMES A DAY INSTILL 1 DROP INTO AFFECTED EYE TWO TIMES A DAY SOLD: 12/31/2019 [facility] Ketotifen 0.25 MG/ML Ophthalmic Solution [Zaditor] Zad itor 0.025 % Zaditor 0.025 % 12/31/2019 12:00:00 AM EDT 1.0 {drop_into_affected_eye} active Zaditor 0.025 % eCW1 ([facility]) Sulfacetamide Sodium 100 MG/ML Ophthalmic Solution [Bl eph-10] Bleph-10 10 % Bleph-10 10 % 12/31/2019 12:00:00 AM EDT 2.0 {drops_into_affected_eye} active Bleph-10 10 % eCW1 ([facility]) Erythromycin 0.005 MG/MG Ophthalmic Ointment Erythromycin 12/28/2019 12:00:00 AM EDT OPHTHALMIC active MEDENT ([facility]) 5 mg/gram (0.5 %) 12/28/2019 12:00:00 AM EDT ointment 3 APPLY 1 CM RIBBON TO LEFT EYE EVERY 4-6 HOURS FOR 7 DAYS APPLY 1 CM RIBBON TO LEFT EYE EVERY 4-6 HOURS FOR 7 DAYS SOLD: 12/28/2019 [facility] 42 mcg (0.06 %) 11/19/2019 12:00:00 AM EDT spray,non-aerosol 15 INSTILL 2 SPRAYS INTO EACH NOSTRIL TWO TIMES A DAY INSTILL 2 SPRAYS INTO EACH NOSTRIL TWO TIMES A DAY SOLD: 12/26/2019 [facility] 42 mcg (0.06 %) 11/19/2019 12:00:00 AM EDT spray,non-aerosol 15 INSTILL 2 SPRAYS INTO EACH NOSTRIL TWO TIMES A DAY INSTILL 2 SPRAYS INTO EACH NOSTRIL TWO TIMES A DAY SOLD: 11/19/2019 [facility] Ipratropium [place] Ipratropium [place] 11/18/2019 12:00:00 AM EDT NASAL active MEDENT ([facility] ) benzonatate 100 MG Oral Capsule [Tessalon Perles] Tessalon P erles 11/03/2019 12:00:00 AM EDT ORAL completed MEDENT ([facility] ) benzonatate 100 MG Oral Capsule BENZONATATE 11/03/2019 12:00:00 AM EDT capsule 120 TAKE TWO CAPSULES BY MOUTH E VERY MORNING 1 CAPSULE AT 3:00PM AND 1 CAPSULE AT 10:00PM TAKE TWO CAPSULES BY MOUTH EVERY MORNING 1 CAPSULE AT 3:00PM AND 1 CAPSULE AT 10:00PM SOLD: 11/07/2019 [facility] pantoprazole 40 MG Delayed Release Oral Tablet [Proton ix] Protonix 40 MG Protonix 40 MG 09/29/2019 12:00:00 AM EDT active 1 tablet eCW1 ([facility]) pantoprazole 40 MG Delayed Release Oral Tablet [Proton ix] Protonix 40 MG Protonix 40 MG 09/29/2019 12:00:00 AM EDT active 1 tablet eCW1 ([facility]) pantoprazole 40 MG Delayed Release Oral Tablet [Proton ix] Protonix 40 MG Protonix 40 MG 09/29/2019 12:00:00 AM EDT active 1 tablet eCW1 ([facility]) pantoprazole 40 MG Delayed Release Oral Tablet [Proton ix] Protonix 40 MG Protonix 40 MG 09/29/2019 12:00:00 AM EDT active 1 tablet eCW1 ([facility]) pantoprazole 40 MG Delayed Release Oral Tablet [Proton ix] Protonix 40 MG Protonix 40 MG 09/29/2019 12:00:00 AM EDT 1.0 {tablet} active Protonix 40 MG eCW1 ([facility]) pantoprazole 40 MG Delayed Release Oral Tablet [Proton ix] Protonix 40 MG Protonix 40 MG 09/29/2019 12:00:00 AM EDT 1.0 {tablet} active Protonix 40 MG eCW1 ([facility]) pantoprazole 40 MG Delayed Release Oral Tablet [Proton ix] Protonix 40 MG Protonix 40 MG 09/29/2019 12:00:00 AM EDT 1.0 {tablet} active Protonix 40 MG eCW1 ([facility]) pantoprazole 40 MG Delayed Release Oral Tablet [Proton ix] Protonix 40 MG Protonix 40 MG 09/29/2019 12:00:00 AM EDT 1.0 {tablet} active Protonix 40 MG eCW1 ([facility]) pantoprazole 40 MG Delayed Release Oral Tablet [Proton ix] Protonix 40 MG Protonix 40 MG 09/29/2019 12:00:00 AM EDT active 1 tablet eCW1 ([facility]) 40 mg 09/29/2019 12:00:00 AM EDT tablet,delayed release (DR/EC) 30 TAKE ONE TABLET BY MOUTH EVERY DAY TAKE ONE TABLET BY MOUTH EVERY DAY SOLD: 09/29/2019 [facility] 10 mg 08/06/2019 12:00:00 AM EST tablet 7 TAKE ONE TABLET BY MOUTH AT BEDTIME FOR 7 DAYS TAKE ONE TABLET BY MOUTH AT BEDTIME FOR 7 DAYS SOLD: 08/06/2019 [facility] 2 ML Sodium Hyaluronate 10 MG/ML Prefilled Syringe [Euflexxa ] Euflexxa 07/22/2019 12:00:00 AM EST active MEDENT ([facility] ) Insurance Providers Payer name Policy type / Coverage type Policy ID Covered libertarian ID Covered libertarian's relationship to hernandez Policy Hernandez Plan Information UMR [facility] [id number] [place] [id number] [facility] [id number] HU2 [id number] SELF PAY ONLY [id number] SP [id number] UMR O [id number] S [id number] UMR [facility] [id number] [place] [id number] ANSI-Commercial [id number] ANSI-Commercial [id number] R [facility] [id number] [place]2 [id number] [employer] Med[employer] Part B [id number] Family Dependent [id number] [employer] Part B [id number] Family Dependent [id number] [facility] Commercial [id number] Family Dependent 1 [id number] ANSI-Commercial [id number] [employer] Part B [id number] Family Dependent [id number] ANSI-Commercial [id number] [facility] Maintenance Organization (HMO) [id number] Self [id number] ANSI-Commercial [id number] [employer] B [id number] Family Dependent [id number] ANSI-Commercial [id number] ANSI-Commercial [id number] ANSI-Commercial [id number] ANSI-Commercial [id number] ANSI-Commercial [id number] ANSI-Commercial [id number] ANSI-Commercial [id number] [employer] Part B [id number] Family Dependent [id number] ANSI-Commercial [id number] ANSI-Commercial [id number] ANSI-Commercial [id number] [facility] [id number] [employer] [id number] [place] [id number] [place] Workers Compensation [id number] Self [id number] [employer] (pr) Commercial [id number] Family Dependent 8 [id number] [employer] Part B [id number] Family Dependent [id number] i Health Maintenance Organization (HMO) [id number] [place] b[place] Dependent [id number] [employer] [id number] [place] [id number] [employer] (pr) Commercial [id number] Family Dependent 3 35 [employer] PPO O [id number] P [id number] Problems, Conditions, and Diagnoses Code Display Name Description Problem Type Effective Dates Data Source(s) 027598838 Gastroesophageal reflux disease Gastroesophageal reflux disease Problem 07/28/2020 12:00:00 AM EST [facility] ([facility]) N52.9 [id number] Erectile dysfunction, unspecifie d erectile dysfunction type Problem 04/29/2020 12:00:00 AM EDT eCW1 ([facility]) L40.9 4005625 Psoriasis Problem 10/21/2019 12:00:00 AM ED T eCW1 ([facility]) M16.0 [id number] Primary osteoarthritis of both hips Probl em 10/21/2019 12:00:00 AM EDT eCW1 ([facility]) M17.0 803326552 Primary osteoarthritis of both knees Prob penny 10/21/2019 12:00:00 AM EDT eCW1 ([facility]) M16.0 428316898 Primary osteoarthritis of both hips Probl em 10/21/2019 12:00:00 AM EDT eCW1 ([facility]) L40.9 4808896 Psoriasis Problem 10/21/2019 12:00:00 AM ED T eCW1 ([facility]) M17.0 294191000 Primary osteoarthritis of both knees Prob penny 10/21/2019 12:00:00 AM EDT eCW1 ([facility]) 70314928 Essential hypertension Essential hypertension Problem 10/21/2019 12:00:00 AM EDT MEDENT ([facility] ) M15.9 358413014 Generalized osteoarthrosis, involving mul tiple sites Problem 09/29/2019 12:00:00 AM EDT eCW1 ([facility]) F51.8 254250809 Other sleep disorder s not due to a substance or known physiological condition Problem 09/29/2019 12:00:00 AM EDT eCW1 ([facility]) M15.9 841181000 Generalized osteoarthrosis, involving mul tiple sites Problem 09/29/2019 12:00:00 AM EDT eCW1 ([facility]) F51.8 015636445 Other sleep disorder s not due to a substance or known physiological condition Problem 09/29/2019 12:00:00 AM EDT eCW1 ([facility]) 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, unspecif ied type Problem 09/29/2019 12:00:00 AM EDT eCW1 ([facility]) Surgeries/Procedures Procedure Description Date Indications Data Source(s) ARTHROCENTESIS ASPIR&/INJECTION MAJOR JT/BURSA 021 12:00:00 AM EST MEDENT ([facility] ) ARTHROCENTESIS ASPIR&/INJECTION MAJOR JT/BURSA 021 12:00:00 AM EST MEDENT ([facility] ) RADIOLOGIC EXAM KNEE COMPLETE 4/MORE VIEWS 07/26/2020 12:00:00 AM EST MEDENT ([facility]) RADIOLOGIC EXAM KNEE COMPLETE 4/MORE VIEWS 07/26/2020 12:00:00 AM EST MEDENT ([facility]) Immunization: Flublok Quadrivalent (18 years & older) 0.5mL IM (Influenza) 04/29/2020 12:00:00 AM EDT eCW1 ([facility]) ARTHROCENTESIS ASPIR&/INJECTION MAJOR JT/BURSA 020 12:00:00 AM EDT MEDENT ([facility] ) ARTHROCENTESIS ASPIR&/INJECTION MAJOR JT/BURSA 020 12:00:00 AM EDT MEDENT ([facility] ) VENIPUNCT, ROUTINE* 10/21/2019 12:00:00 AM EDT eCW1 ([facility]) TeleMedicine Est. Pt. Level 2 10/15/2019 12:00:00 AM E DT eCW1 ([facility]) ARTHROCENTESIS ASPIR&/INJECTION MAJOR JT/BURSA 020 12:00:00 AM EST MEDENT ([facility]) ARTHROCENTESIS ASPIR&/INJECTION MAJOR JT/BURSA 12:00:00 AM EST MEDENT ([facility]) ARTHROCENTESIS ASPIR&/INJECTION MAJOR JT/BURSA 12:00:00 AM EST MEDENT ([facility]) ARTHROCENTESIS ASPIR&/INJECTION MAJOR JT/BURSA 12:00:00 AM EST MEDENT ([facility]) ARTHROCENTESIS ASPIR&/INJECTION MAJOR JT/BURSA 12:00:00 AM EST MEDENT ([facility]) ARTHROCENTESIS ASPIR&/INJECTION MAJOR JT/BURSA 12:00:00 AM EST MEDENT ([facility]) X-Ray Hip Unilateral With Pelvis 2-3 Views 07/20/2019 12:00:00 AM EST MEDENT ([facility]) RADIOLOGIC EXAM KNEE COMPLETE 4/MORE VIEWS 07/20/2019 12:00:00 AM EST MEDENT ([facility]) Results ID Date Data Source [id number] 08/05/2020 10:00:00 AM EST [facility] Name Value Range Interpretation Code Description Data Mariann rce(s) Supporting Document(s) SARS coronavirus 2 RNA Not Detected [facility] [place] This lab was ordered by [facility] and reported by [facility]. ID Date Data Source [id number] 06/21/2020 12:00:00 AM EST [facility] Name Value Range Interpretation Code Description Data Mariann rce(s) Supporting Document(s) 2019-nCoV RNA XXX MARIE+probe-Imp [facility] This lab was ordered by [facility] and reported by [employer] ID Date Data Source [id number] 01/11/2020 09:39:00 AM EDT MEDENT ([facility], ) Name Value Range Interpretation Code Description Data Mariann rce(s) Supporting Document(s) Thyroid Stimulating Hormone 2.640 uIU/ML 0.358-3.740 Norm al (applies to non- numeric results) MEDENT ([facility], ) Free T4 0.92 ng/dL 0.76-1.46 Normal (applies to non-numeric resul ts) MEDENT ([facility], ) ID Date Data Source ISAIAS TITER & PATTERN 09/29/2019 12:00:00 AM EDT eCW1 ([facility]) Name Value Range Interpretation Code Description Data Mariann rce(s) Supporting Document(s) Negative . ISAIAS (HEP2) eCW1 ([facility]) ID Date Data Source CYCLIC CITRULLINATED PEPTIDE 09/29/2019 12:00:00 AM EDT eCW1 ([facility]) Name Value Range Interpretation Code Description Data Mariann rce(s) Supporting Document(s) 11 0-19 CYCLIC CITRULLINATED PEPTIDE e CW1 ([facility]) ID Date Data Source RHEUMATOID FACTOR QUANT 09/29/2019 12:00:00 AM EDT eCW1 ([facility]) Name Value Range Interpretation Code Description Data Mariann rce(s) Supporting Document(s) < 10.0 <15.0 RHEUMATOID FACTOR QUANT eCW1 ( [facility]) ID Date Data Source C REACTIVE PROTEIN QUANTITATIV (At [facility]) 09/29/2019 12:00 :00 AM EDT eCW1 ([facility]) Name Value Range Interpretation Code Description Data Mariann rce(s) Supporting Document(s) < 0.30 0.00-0.30 C REACTIVE PROTEIN QUANTI TATIV eCW1 ([facility]) Procedure Social History Code Duration Value Status Description Data Source(s ) Smoking 01/14/2020 12:00:00 AM EDT Patient has never smoked co mpleted Patient has never smoked MEDENT ([facility], ) Smoking 12/28/2019 12:00:00 AM EDT Patient has never smoked co mpleted Patient has never smoked MEDENT ([facility]) Vital Signs ID Date Data Source UNK Name Value Range Interpretation Code Description Data Source(s) Body temperature 96.8 [degF] 96.8 [degF] MEDENT ([facility]) Body weight 112.493 kg 112.493 kg [facility]) Body mass index (BMI) [Ratio] 34.6 kg/m2 34.6 k g/m2 MEDENT ([facility]) Heart rate 50 /min 50 /min [facility] ([facility]) Diastolic blood pressure 79 mm[Hg] 79 mm[Hg] MEDENT ([facility]) Systolic blood pressure 139 mm[Hg] 139 mm[Hg] M EDENT ([facility]) Body weight 248.00 [lb_av] 248.00 [lb_av] MEDEN T ([facility]) Body height 71 [in_i] 71 [in_i] [facility] ([facility]) 5'11" Body temperature 97.3 [degF] 97.3 [degF] MEDENT ([facility] ) Body mass index (BMI) [Ratio] 33.5 kg/m2 33.5 k g/m2 MEDENT ([facility] ) Body weight 247.00 [lb_av] 247.00 [lb_av] MEDEN T ([facility] ) Body height 72 [in_i] 72 [in_i] MEDENT ([facility] ) 6'0" Diastolic blood pressure 76 mm[Hg] 76 mm[Hg] eCW1 ([facility]) Systolic blood pressure 138 mm[Hg] 138 mm[Hg] e CW1 ([facility]) Body temperature 97.4 [degF] 97.4 [degF] eCW1 ( [facility]) Respiratory rate 18 /min 18 /min eCW1 ([facility]) Heart rate 83 /min 83 /min W1 ([facility]) Body mass index (BMI) [Ratio] 34.31 kg/m2 34.31 kg/m2 W1 ([facility]) Body height 71 [in_i] 71 [in_i] eCW1 ([facility]) Body weight 246 [lb_av] 246 [lb_av] eCW1 ([facility]) Body weight 111.132 kg 111.132 kg MEDENT ([facility], ) Body mass index (BMI) [Ratio] 34.2 kg/m2 34.2 k g/m2 MEDENT ([facility], ) Body weight 245.00 [lb_av] 245.00 [lb_av] MEDEN T ([facility], ) Body height 71 [in_i] 71 [in_i] MEDENT ([facility], ) " Body temperature 97.3 [degF] 97.3 [degF] [facility] ([facility]) Oxygen saturation in Arterial blood by Pulse oximetry 95 % 95 % [facility] ([facility]) Heart rate 46 /min 46 /min [facility] ([facility]) Diastolic blood pressure 70 mm[Hg] 70 mm[Hg] [facility] Systolic blood pressure 110 mm[Hg] 110 mm[Hg] M EDENT ([facility]) Body weight 110.678 kg 110.678 kg [facility] ([facility]) Body mass index (BMI) [Ratio] 34.0 kg/m2 34.0 k g/m2 [facility] ([facility]) Body weight 244.00 [lb_av] 244.00 [lb_av] MEDEN T ([facility]) Body height 71 [in_i] 71 [in_i] [facility] " Diastolic blood pressure mm[Hg] eCW1 ([facility]) Systolic blood pressure 132 mm[Hg] 132 mm[Hg] e CW1 ([facility]) Body temperature 98.3 [degF] 98.3 [degF] eCW1 ( [facility]) Respiratory rate 18 /min 18 /min eCW1 ([facility]) Heart rate 51 /min 51 /min eCW1 ([facility]) Body mass index (BMI) [Ratio] 33.75 kg/m2 33.75 kg/m2 eCW1 ([facility]) Body height 71 [in_i] 71 [in_i] eCW1 ([facility]) Body weight 242 [lb_av] 242 [lb_av] eCW1 ([facility]) Body mass index (BMI) [Ratio] 33.2 kg/m2 33.2 k g/m2 MEDENT ([facility]) Body height 71 [in_i] 71 [in_i] MEDENT ([facility]) 5'11" Body weight 238.00 [lb_av] 238.00 [lb_av] MEDEN T ([facility]) Body temperature 98.3 [degF] 98.3 [degF] MEDENT ([facility]) Oxygen saturation in Arterial blood by Pulse oximetry 95 % 95 % MEDENT ([facility]) Respiratory rate 14 /min 14 /min MEDENT ( [facility]) Heart rate 78 /min 78 /min MEDENT ([facility]) Diastolic blood pressure 79 mm[Hg] 79 mm[Hg] MEDENT ([facility]) Systolic blood pressure 117 mm[Hg] 117 mm[Hg] M EDENT ([facility]) Body weight 110.678 kg 110.678 kg [facility] ([facility]) Body mass index (BMI) [Ratio] 34.0 kg/m2 34.0 k g/m2 [facility] ([facility]) Body weight 244.00 [lb_av] 244.00 [lb_av] MEDEN T ([facility]) Body height 71 [in_i] 71 [in_i] [facility] ([facility]) 5'11" Body temperature 96.8 [degF] 96.8 [degF] [facility] ([facility]) Oxygen saturation in Arterial blood by Pulse oximetry 97 % 97 % [facility] ([facility]) Heart rate 69 /min 69 /min [facility] ([facility]) Diastolic blood pressure 62 mm[Hg] 62 mm[Hg] [facility] ([facility]) Systolic blood pressure 122 mm[Hg] 122 mm[Hg] [facility] Body weight 106.596 kg 106.596 kg [facility] ([facility]) Body mass index (BMI) [Ratio] 32.8 kg/m2 32.8 k g/m2 [facility] ([facility]) Body weight 235.00 [lb_av] 235.00 [lb_av] MEDEN T ([facility], ) Body height 71 [in_i] 71 [in_i] DORINA ([facility], ) 5'11" Diastolic blood pressure 78 mm[Hg] 78 mm[Hg] eCW1 ([facility]) Systolic blood pressure 144 mm[Hg] 144 mm[Hg] e CW1 ([facility]) Body temperature 97.6 [degF] 97.6 [degF] eCW1 ( [facility]) Respiratory rate 18 /min 18 /min eCW1 ([facility]) Heart rate 80 /min 80 /min eCW1 ([facility]) Body mass index (BMI) [Ratio] 34.25 kg/m2 34.25 kg/m2 eCW1 ([facility]) Body height 71 [in_us] 71 [in_us] eCW1 ([facility]) Body weight Measured 245.6 [lb_av] 245.6 [lb_av ] eCW1 ([facility]) Diastolic blood pressure 78 mm[Hg] 78 mm[Hg] eCW1 ([facility]) Systolic blood pressure 144 mm[Hg] 144 mm[Hg] e CW1 ([facility]) Body temperature 97.4 [degF] 97.4 [degF] eCW1 ( [facility]) Respiratory rate 18 /min 18 /min eCW1 ([facility]) Heart rate 79 /min 79 /min eCW1 ([facility]) Body mass index (BMI) [Ratio] 33.19 kg/m2 33.19 kg/m2 eCW1 ([facility]) Body height 71 [in_us] 71 [in_us] eCW1 ([facility]) Body weight Measured 238 [lb_av] 238 [lb_av] eC W1 ([facility]) Patient Treatment Plan of Care Planned Activity Planned Date Details Description Data Source (s) sildenafil 100 MG Oral Tablet [Viagra] 04/29/2020 12:00:00 AM EDT eCW1 ([facility]) sildenafil 100 MG Oral Tablet [Viagra] 04/29/2020 12:00:00 AM EDT eCW1 ([facility]) Sulfacetamide Sodium 100 MG/ML Ophthalmic Solution [Bl eph-10] 12/31/2019 12:00:00 AM EDT eCW1 ([facility]) Ketotifen 0.25 MG/ML Ophthalmic Solution [Zaditor] 12/31/2019 12 :00:00 AM EDT eCW1 ([facility]) pantoprazole 40 MG Delayed Release Oral Tablet [Proton ix] 09/29/2019 12:00:00 AM EDT eCW1 ([facility]) pantoprazole 40 MG Delayed Release Oral Tablet [Proton ix] 09/29/2019 12:00:00 AM EDT eCW1 ([facility]) pantoprazole 40 MG Delayed Release Oral Tablet [Proton ix] 09/29/2019 12:00:00 AM EDT eCW1 ([facility]) pantoprazole 40 MG Delayed Release Oral Tablet [Proton ix] 09/29/2019 12:00:00 AM EDT eCW1 ([facility]) pantoprazole 40 MG Delayed Release Oral Tablet [Proton ix] 09/29/2019 12:00:00 AM EDT eCW1 ([facility])
--- OUTSIDE RECORDS SUMMARY | 2020-08-10 09:59 | CCD | Continuity of Care Document ---
Author Author Angel SWANSON M.D. Organization Unknown Address [address] [place] [address] Phone [phone] Care Team Providers Care Toolroom Keeper Name Role Phone Randal Diez M.D. AUTM [phone] Problems Active Problems Provider Date Gastroesophageal reflux [...] 360u nits Mauricio Swanson M.D. 07/28/2020 Sutab [id number] Tablets as directed 1box Mauricio Swanson M.D. [...] Medical Devices Description No Information Available Encounters Description No Information Available Assessments Date Code Description Provider 07/28/2020 Z86.010 [...]
--- OUTSIDE RECORDS SUMMARY | 2020-08-10 09:59 | CCD | Continuity of Care Document ---
Author Author Angel KIRK Organization Unknown Address [address] [place] [address], [address] [address] Phone [phone] Problems Active Problems Provider Date Pure hypercholesterolemia [...] #3 08/06/2019 iid/sw Charlie Richards MD 02/[address] 1 by mouth every day Unknown Vitamin D3 25mcg Tablets Unknown Ezetimibe 10mg Tablets Unknown Amlodipine Besylate 5mg Tablets Unknown Fenofibrate 150mg Capsules Unknown Losartan Potassium 100mg Tablets Unknown Metformin HCL 500mg Tablets Unknown Omeprazole 40mg Capsules DR Unknown Immunizations Description No Information Available Vital Signs Date Vital Result Comment 07/26/2020 10:31am Body Temperature 97.3 F Height 72 inches 6'0" Weight 247.00 lb BMI (Body Mass Index) 33.5 kg/m2 04/02/2019 3:32pm Height 71.5 inches 5'11.50" Weight 225.00 lb BMI (Body Mass Index) 30.9 kg/m2 Results Description No Information Available Procedures Date Code Description Status 07/26/2020 59871 X-Ray Knee Complete W/Obliques & Tunnel And/Or Standing Views Completed 07/26/2020 66366 X-Ray Knee Complete W/Obliques & Tunnel And/Or Standing Views Completed 07/26/2020 Inject/Drain Joint/Bursa Major C ompleted 04/08/2020 Inject/Drain Joint/Bursa Major C ompleted 04/08/2020 Inject/Drain Joint/Bursa Major C ompleted Medical Devices [...] of knee JOHN Thomason Plan of Treatment 07/26/2020 - JOHN Thomason* M17.0 Bilateral primary osteoarthritis of knee * Follow up:* 4 months with DPV or SBF for possible knee surg eval 2-3 weeks with IID for neck eval Functional Status Description No Information Available Mental Status Description No Information Available Referrals Refer to Dr Reason for Referral Status Appt Date Zan Kirk I, Pac EUFLEXXA ,[id number] JOSI ZIONE E, NO AUTH REQD BASED ON MED [facility],..LD Created [facility] [address] [place] [address] [phone]
[2020-08-10] MEDS ORDERED: propofoL 200 MG/20 ML VIAL As Ordered ONE ×3 (11:09→11:34)
[2020-08-10] MEDS ORDERED: LIDOCAINE 2% 100MG/5ML SDV (FOR ANES.) As Ordered ONE (11:10)
[2020-08-10] MEDS ORDERED: fentaNYL 100 MCG/2 ML INJECTION (J3010) As Ordered ONE (11:17)
--- NOTE | 2020-08-10 11:53 | ROOR ---
Patient Name: Angel Lee Procedure Date: 08/10/2020 11:10 AM Date of : 1955 Age: 65 Room: [facility] Gender: Male Note Status: Finalized Procedure: Total Colonoscopy to Cecum + Hot Snare Polypectomy + Hemoclip Indications: High risk colon cancer surveillance: Personal history of colonic polyps Providers: Mauricio Swanson MD Referring MD: Randal Diez MD Requesting Provider: Medicines: Monitored Anesthesia Care Complications: No immediate complications. Procedure: Pre-Anesthesia Assessment: - The heart rate, respiratory rate, oxygen saturations, blood pressure, adequacy of pulmonary ventilation, and response to care were monitored throughout the procedure. The Colonoscope was introduced through the anus and advanced to the cecum, identified by appendiceal orifice and ileocecal valve. The colonoscopy was performed without difficulty. The patient tolerated the procedure well. The quality of the bowel preparation was excellent. Findings: The perianal and digital rectal examinations were normal. Non-bleeding internal hemorrhoids were found during retroflexion. The hemorrhoids were small and Grade I (internal hemorrhoids that do not prolapse). A medium polyp was found in the ascending colon. The polyp was sessile. The polyp was removed with a hot snare. Resection and retrieval were complete. To prevent bleeding after the polypectomy, one hemostatic clip was successfully placed (MR conditional). There was no bleeding at the end of the procedure. The exam was otherwise without abnormality on direct and retroflexion views. Impression: - Non-bleeding internal hemorrhoids. - One medium polyp in the ascending colon, removed with a hot snare. Resected and retrieved. Clip (MR conditional) was placed. - The examination was otherwise normal on direct and retroflexion views. - The exam was otherwise normal to the cecum. Recommendation: - Patient has a contact number available for emergencies. The signs and symptoms of potential delayed complications were discussed with the patient. Return to normal activities tomorrow. Written discharge instructions were provided to the patient. - High fiber diet. - Discharge patient to home. - Continue present medications. - Await pathology results. - Telephone GI clinic for pathology results in 1 week. - Repeat colonoscopy for surveillance based on pathology results. - Return to referring physician. - The findings and recommendations were discussed with the patient. Procedure Code(s): --- Professional --- 09479, Colonoscopy, flexible; with removal of tumor(s), polyp(s), or other lesion(s) by snare technique Diagnosis Code(s): --- Professional --- Z86.010, Personal history of colonic polyps K64.0, First degree hemorrhoids K63.5, Polyp of colon CPT copyright 2019 [employer]. All rights reserved. The codes documented in this report are preliminary and upon diesel engine assembler review may be revised to meet current compliance requirements. Mauricio Swanson MD Mauricio Swanson MD 08/10/2020 11:53:14 AM Electronically signed by Mauricio Swanson MD Number of Addenda: 0 Note Initiated On: 08/10/2020 11:10 AM Estimated Blood Loss: Estimated blood loss: none.
[2020-08-10 12:30] VITALS: BP 126/79
--- NOTE | 2020-08-10 12:38 | ROOR ---
Patient Name: Angel Lee Procedure Date: 08/10/2020 11:09 AM Date of : 1955 Age: 65 Room: [facility] Gender: Male Note Status: Finalized Procedure: Upper Endoscopy + Biopsies Indications: Heartburn, Chronic cough Providers: Mauricio Swanson MD Referring MD: Randal Diez MD Requesting Provider: Medicines: Monitored Anesthesia Care Complications: No immediate complications. Procedure: Pre-Anesthesia Assessment: - The heart rate, respiratory rate, oxygen saturations, blood pressure, adequacy of pulmonary ventilation, and response to care were monitored throughout the procedure. The Endoscope was introduced through the mouth, and advanced to the second part of duodenum. The upper GI endoscopy was accomplished without difficulty. The patient tolerated the procedure well. Findings: The Z-line was variable and was found 39 cm from the incisors. Multiple biopsies were obtained with cold forceps for evaluation to rule out Rodriguez's Esophagus randomly at the gastroesophageal junction. No other significant abnormalities were identified in a careful examination of the stomach. Biopsies were taken with a cold forceps in the gastric antrum for Helicobacter pylori testing. The exam of the duodenum was otherwise normal. Impression: - Z-line variable, 39 cm from the incisors. - Multiple biopsies were obtained at the gastroesophageal junction. - Biopsies were taken with a cold forceps for Helicobacter pylori testing. - The examination was otherwise normal. Recommendation: - Patient has a contact number available for emergencies. The signs and symptoms of potential delayed complications were discussed with the patient. Return to normal activities tomorrow. Written discharge instructions were provided to the patient. - High fiber diet. - Discharge patient to home. - Follow an antireflux regimen. - Continue present medications. - Await pathology results. - Telephone GI clinic for pathology results in 1 week. - Return to referring physician. - The findings and recommendations were discussed with the patient. Procedure Code(s): --- Professional --- 36975, Esophagogastroduodenoscopy, flexible, transoral; with biopsy, single or multiple Diagnosis Code(s): --- Professional --- K22.8, Other specified diseases of esophagus R12, Heartburn R05, Cough CPT copyright 2019 [employer]. All rights reserved. The codes documented in this report are preliminary and upon social worker assistant review may be revised to meet current compliance requirements. Mauricio Swanson MD Mauricio Swanson MD 08/10/2020 12:37:52 PM Electronically signed by Mauricio Swanson MD Number of Addenda: 0 Note Initiated On: 08/10/2020 11:09 AM Estimated Blood Loss: Estimated blood loss: none.
== END 2020-08-10 12:41 | disposition home or self-care (01) ==
LOC: M OPP 09:54
PROVIDERS: ATTEND Internal Medicine Gastroenterology
DX: Z12.11 Encounter for screening for malignant neoplasm of colon (principal); Z86.010 Personal history of colon polyps; R12 Heartburn; R05 Cough; D12.2 Benign neoplasm of ascending colon; K64.0 First degree hemorrhoids; D13.0 Benign neoplasm of esophagus; D13.1 Benign neoplasm of stomach; K22.8 Other specified diseases of esophagus; I10 Essential (primary) hypertension; E78.5 Hyperlipidemia, unspecified; R73.03 Prediabetes; G47.30 Sleep apnea, unspecified; Z88.1 Allergy status to other antibiotic agents; Z88.8 Allergy status to other drugs, medicaments and biological substances; Z79.82 Long term (current) use of aspirin; Z79.84 Long term (current) use of oral hypoglycemic drugs; Z79.899 Other long term (current) drug therapy; Z20.822 Contact with and (suspected) exposure to COVID-19
CPT/HCPCS: 43239; 45385; 88305; J3010; U0003

== ENCOUNTER → 2020-11-07 | Outpatient (CLI) | payer OTHER ==
[~2020-11-07] MED LIST changes: -NS 1,000 ML IV ONE
[2020-11-07 11:25] LABS: HEMOGLOBIN 13.3 g/dl (13.5-17.5); MEAN CORPUSCULAR HEMOGLOBIN 31.4 pg (27.0-33.0); MEAN CORPUSCULAR HGB CONC 33.3 g/dl (32.0-36.5); MEAN CORPUSCULAR VOLUME 94.6 fl (80.0-96.0); PLATELET COUNT, AUTOMATED 243 10^3/uL (150-450); RED BLOOD COUNT 4.23 10^6/uL (4.30-6.10); WHITE BLOOD COUNT 5.3 10^3/uL (4.0-10.0)
[2020-11-07 11:47] LABS: ALBUMIN 3.6 GM/DL (3.2-5.2); ALT/SGPT 24 U/L (12-78); BILIRUBIN,TOTAL 0.4 MG/DL (0.2-1.0); BLOOD UREA NITROGEN 19 MG/DL (7-18); CALCIUM LEVEL 9.5 MG/DL (8.8-10.2); CARBON DIOXIDE LEVEL 26 MEQ/L (21-32); CHLORIDE LEVEL 106 MEQ/L (98-107); CHOLESTEROL LEVEL 196 MG/DL (<200); CHOLESTEROL RISK RATIO 4.454 (<5); CREATININE FOR GFR 0.96 MG/DL (0.70-1.30); GLOMERULAR FILTRATION RATE > 60.0 (>49); GLUCOSE, FASTING 101 MG/DL (70-100); HDL CHOLESTEROL 44 MG/DL (>40); LDL CHOLESTEROL 117 MG/DL (<100); NON-HDL-C 152 MG/DL; POTASSIUM SERUM 4.5 MEQ/L (3.5-5.1); SODIUM LEVEL 139 MEQ/L (136-145); TRIGLYCERIDES LEVEL 174 MG/DL (<150)
[2020-11-07 12:11] LABS: HEMOGLOBIN A1c 5.5 %
== END ==
LOC: M WUC 08:25
PROVIDERS: ATTEND Family Medicine
DX: K22.70 Barrett's esophagus without dysplasia (principal); D64.9 Anemia, unspecified; I11.9 Hypertensive heart disease without heart failure; E78.5 Hyperlipidemia, unspecified; R73.03 Prediabetes; I49.3 Ventricular premature depolarization

== ENCOUNTER → 2020-11-17 | Outpatient (CLI) | payer OTHER ==
--- NOTE | 2020-11-17 15:52 | REP ---
INDICATION: SINUSITIS. Chronic maxillary sinusitis. COMPARISON: NONE. TECHNIQUE: Helical scanning is acquired and 3 mm axial images re-formatted. Coronal MPR images are generated and reviewed. FINDINGS: The left frontal sinus is largely opacified. There is moderate mucosal thickening in the inferior aspect of the right frontal sinus. There is extensive opacification of the ethmoid sinuses bilaterally. Moderate mucosal thickening is seen in the sphenoid sinus air cells. There is extensive opacification which is nearly complete in the maxillary sinuses bilaterally. Mastoid sinus aeration is normal and symmetric. Middle ear cavities appear to be normally aerated. Bony sinus margins are intact. Bony orbital margins are normal. The nasal septum deviates slightly to the left without a visible beak. Nasal turbinates soft tissues are unremarkable. No nasal polyp is appreciated. On coronal images there is mucosal thickening in the nasal ethmoid recesses bilaterally. The ostiomeatal complexes are bilaterally completely occluded by mucosal thickening. No definite variant anatomy is seen. Deep facial soft tissues and orbital soft tissues are unremarkable. The visualized intracranial soft tissues are unremarkable. IMPRESSION: Advanced poly sinusitis changes. The ostiomeatal complexes are completely occluded by mucosal thickening bilaterally. Extensive opacification in the ethmoids and frontals as well as the maxillary sinuses. <Electronically signed by Dominick Hernandez > 11/17/20 [id number]
== END ==
LOC: M RAD 14:49
PROVIDERS: ATTEND Specialist
DX: J32.9 Chronic sinusitis, unspecified (principal)

== ENCOUNTER → 2020-12-26 | Outpatient (CLI) | payer OTHER ==
[~2020-12-26] MED LIST changes: +ISOVUE-370 76% 100ML VIAL As Ordered ONE
--- NOTE | 2020-12-27 08:14 | REP ---
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 This CT examination was performed using the following dose reduction techniques: Automated exposure control, adjustment of mA and/or kv according to the patient's size, and use of iterative reconstruction technique. FINDINGS: Bilateral lung morales are relatively symmetric and well aerated. Mild scattered bibasilar fibroatelectatic/interstitial changes appear slightly progressive as compared to prior examination. No acute consolidation, significant nodule or mass. No effusion. No pneumothorax. Tracheobronchial tree is patent. No obvious adenopathy. Mediastinum demonstrates relatively normal thoracic aorta, pulmonary vasculature, and heart/pericardium. Small hiatal hernia at the gastroesophageal junction cannot be excluded. Skeletal structures are intact and without acute osseous abnormality. Degenerative changes are noted. Bilateral adrenal glands are normal. IMPRESSION: Mild chronic appearing basilar changes slightly progressive as compared to prior. No acute mediastinal or pleuroparenchymal process. <Electronically signed by James Page > 12/27/20 [id number]
== END ==
LOC: M RAD 15:33
PROVIDERS: ATTEND Family Medicine
DX: J84.10 Pulmonary fibrosis, unspecified (principal); Z57.39 Occupational exposure to other air contaminants
CPT/HCPCS: 71260; Q9967

== ENCOUNTER → 2021-01-10 | Outpatient (CLI) | payer MEDICARE, OTHER ==
[~2021-01-10] MED LIST changes: +DOXY-350 PO; +GAVICHW PO; -ISOVUE-370 76% 100ML VIAL As Ordered ONE; +PERCOCET PO; +SILD100T PO
--- NOTE | 2021-01-10 09:03 | REP ---
INDICATION: CONTUSION COMPARISON: None. TECHNIQUE: AP, lateral, bilateral oblique views of the right elbow elbow. FINDINGS: Age-related degenerative changes are appreciated. No obvious acute fracture or dislocation identified. Lateral view demonstrates posterior soft tissue swelling possibly related to trauma. No obvious anterior effusion. IMPRESSION: Posterior swelling. Degenerative changes. No obvious acute fracture or dislocation. <Electronically signed by James Page > 01/10/21 [id number]
== END ==
LOC: M WUC 08:38
PROVIDERS: ATTEND Physician Assistant
DX: S50.01XA Contusion of right elbow, initial encounter (principal); X58.XXXA Exposure to other specified factors, initial encounter; Y92.9 Unspecified place or not applicable

== ENCOUNTER → 2021-01-19 | Outpatient (CLI) | payer MEDICARE, OTHER ==
[~2021-01-19] MED LIST changes: +LOSA100T45 PO; -LOSA100T50 PO
== END ==
LOC: M LABSMTC 11:30
PROVIDERS: ATTEND Anesthesiology
DX: Z01.812 Encounter for preprocedural laboratory examination (principal)

== ENCOUNTER → 2021-01-19 | Outpatient (CLI) | payer MEDICARE, OTHER ==
[2021-01-19 11:47] LABS: BLOOD UREA NITROGEN 16 MG/DL (7-18); CALCIUM LEVEL 8.8 MG/DL (8.8-10.2); CARBON DIOXIDE LEVEL 29 MEQ/L (21-32); CHLORIDE LEVEL 105 MEQ/L (98-107); CREATININE FOR GFR 1.01 MG/DL (0.70-1.30); GLOMERULAR FILTRATION RATE > 60.0 (>49); GLUCOSE, FASTING 107 MG/DL (70-100); POTASSIUM SERUM 4.8 MEQ/L (3.5-5.1); SODIUM LEVEL 137 MEQ/L (136-145)
== END ==
LOC: M LAB 08:47
PROVIDERS: ATTEND Anesthesiology
DX: Z01.818 Encounter for other preprocedural examination (principal); R03.0 Elevated blood-pressure reading, without diagnosis of hypertension

== ENCOUNTER 2021-01-24 09:02 | Day surgery (SDC) | payer MEDICARE, OTHER ==
[~2021-01-24] VITALS: Ht 180.3 cm; Wt 108.0 kg
[~2021-01-24 09:02] MED LIST changes: -DOXY-350 PO; -LOSA100T45 PO; +LOSA100T50 PO; +LR 1,000 ML IV ONE; -PERCOCET PO
[2021-01-24] MEDS ORDERED: DOXY-350 PO (09:18)
[2021-01-24] MEDS ORDERED: PERCOCET PO (09:18)
[2021-01-24] MEDS ORDERED: LIDOCAINE 2% 100MG/5ML SDV (FOR ANES.) As Ordered ONE (09:33)
[2021-01-24] MEDS ORDERED: fentaNYL 100 MCG/2 ML INJECTION (J3010) As Ordered ONE (09:33)
[2021-01-24] MEDS ORDERED: MIDAZOLAM INJ 2MG/2ML VIAL (J2250 PER 1MG) As Ordered ONE (09:33)
[2021-01-24] MEDS ORDERED: propofoL 200 MG/20 ML VIAL As Ordered ONE (09:33)
[2021-01-24] MEDS ORDERED: ONDANSETRON 4MG/2ML VIAL As Ordered ONE (09:33)
[2021-01-24] MEDS ORDERED: dexameTHASONE 4 MG/ML 1ML VIAL (J1100 PER 1MG) As Ordered ONE (09:33)
[2021-01-24] MEDS ORDERED: ROCURONIUM BROMIDE 50 MG/5 ML VIAL As Ordered ONE (09:34)
[2021-01-24] MEDS ORDERED: SUGAMMADEX SODIUM 500 MG/5 ML VIAL (BRIDION) As Ordered ONE (10:06)
[2021-01-24] MEDS ORDERED: LIDOCAINE W/EPINEPHRINE 1% 20ML VIAL As Ordered ONE (10:41)
[2021-01-24] MEDS ORDERED: OXYMETAZOLINE 0.05% NASAL SPRAY (AFRIN) As Ordered ONE (10:41)
[2021-01-24] MEDS ORDERED: METHYLENE BLUE 0.5% (5MG/ML) 10 ML AMP (PROVAYBLUE) As Ordered ONE (10:41)
[2021-01-24] MEDS ORDERED: EPINEPHrine 1MG/ML INJ 30ML MD-VIAL As Ordered ONE (10:41)
[2021-01-24] MEDS ORDERED: ACETAMINOPHEN 1000MG 100ML IV BTL (OFIRMEV) (J0131 PER 10MG) As Ordered ONE (12:04)
[2021-01-24] MEDS ORDERED: ONDANSETRON 4MG/2ML VIAL IV PRN (12:35)
[2021-01-24] MEDS ORDERED: fentaNYL 100 MCG/2 ML INJECTION (J3010) IV PRN (12:35)
[2021-01-24] MEDS ORDERED: HYDROMORPHONE HCL 0.5 MG/ 0.5 ML SYRINGE (J1170 PER 1) IV PRN (12:35)
[2021-01-24] MEDS ORDERED: oxyCODONE 5MG TAB PO PRN (12:35)
[2021-01-24] MEDS ORDERED: LR 1,000 ML IV SCH (12:35)
[2021-01-24 14:15] VITALS: BP 158/73
--- NOTE | 2021-01-25 16:14 | RO ---
OPERATIVE NOTE DATE OF OPERATION: 01/24/2021 PREOPERATIVE DIAGNOSIS: 1. Chronic sinusitis. 2. Deviated septum. POSTOPERATIVE DIAGNOSIS: 1. Chronic sinusitis. 2. Deviated septum. PROCEDURE: Bilateral total endoscopic ethmoidectomy, antrostomy with septoplasty. SURGEON: Kenrick Graves MD CROZER: ANESTHESIA: INDICATIONS: This is a 66-year-old who presents with a six month or greater history of purulent nasal discharge, congestion, failure to respond to medical therapy. CT scan demonstrated bilateral total anterior ethmoid opacifications with obstruction of the ostiomeatal complex. PROCEDURE: Satisfactory general endotracheal anesthesia was administered. A pharyngeal pack was placed. The nose was prepared for surgery by placing cotton-soaked pledgets with Afrin solution into the nasal cavity bilaterally. Upon removal, there appeared to be a very rigid and stiff caudal deflection of the septum to the left side which after reconsideration felt would provide a resistance to using endoscopic instrumentation in the left side. Because it was caudal, I believe that the cartilaginous nature would allow it to be somewhat flexible but it was actually quite rigid and may have some calcified cartilage here. Therefore, it was elected to proceed with a simple septoplasty in preparation for the endoscopic surgery. 1% Xylocaine with 1:100,000 epinephrine was used to inject into the nasal septum and inferior turbinates. A Giancarlo incision was made on the left side of the nose. A mucoperichondrial flap and envelope was created on the left side of the nasal septum and carried down to the junction of the bony and cartilaginous septum. This was then with an elevator, and an envelope was then created on the right side of the septum. A Silverio scissors was used to make a cut high in the perpendicular plate in the midportion of the vomer, and a central segment of the bony septum was resected. Next, with the round knife on the Steele elevator, a strip of cartilage was resected from the floor of the nose, mobilizing the quadrilateral cartilage and creating a swinging door. Then, a central segment of cartilaginous septum was resected, preserving a 1 cm dorsal and caudal strut. Double-action rongeur was used to take down deflected portions of the perpendicular plate, as well. Finally, the maxillary crest spur was taken down after elevating mucoperiosteum off both sides of it with a chisel. A segment of the resected cartilage was morselized and placed back into the septal envelope. The incision was closed using an interrupted #5-0 chromic suture. Then, a #4-0 plain suture was placed in a [id number] fashion through the two leaves of mucoperichondrium to appose them. The resection of cartilage was most done anteriorly anterior to the perpendicular plate of the vomer which gave access to the middle meatus after it was completed. The procedure then began with the endoscopic surgery with a zero degree telescope as the primary instrument. A microdebrider was the primary instrument of dissection. 1% Xylocaine with 1:100,000 epinephrine was used to inject the lateral nasal wall on the left and right side. The middle turbinates were also injected. These were preserved in the dissection. On the left side, the uncinate process was resected. Purulent nasal discharge was seen emerging from the maxillary sinus. A culture was taken of this. Next, the ethmoid bulla was resected away. The ground lamella was perforated and polypoid-like tissue was seen throughout the dissection. Hyperplastic tissue was resected as well as lamellar bone starting at the posterior ethmoids, working anteriorly along the skull base. The posterior ethmoids were resected inferiorly, medially and the sphenoid sinus ostia was identified and thick secretions were suctioned from this as the area was enlarged using a microdebrider. Anteriorly, the uncinate process was taken down superiorly and the sclerosed over ethmoid cells opened. Next, the maxillary sinus ostia was quite hyperplastic, was identified, cannulated and opened with a combination of side-biting and upbiting forceps as well as microdebrider. Intrasinus examination revealed hyperplastic polypoid mucosa filling the maxillary sinus and a purulent discharge noted. This was irrigated out and suctioned and this dissection was completed. Adrenaline pledgets were placed into this side and an identical procedure was performed on the right side of the nose. Maxillary sinus changes were not as dramatic on the right side as they were on the left side. Completing dissection, removal of the adrenaline pledgets revealed no significant bleeding. A Nasopore pack was placed inside of the nose. The pharyngeal pack was removed and the throat suctioned. The patient was awakened, extubated, and sent to recovery in satisfactory condition. He will be discharged home on Tylox for pain and doxycycline 100 mg b.i.d. He will be seen in the office in one week.
== END 2021-01-24 14:15 | disposition home or self-care (01) ==
LOC: M SDC 09:02
PROVIDERS: ATTEND Specialist
DX: J32.9 Chronic sinusitis, unspecified (principal); J34.2 Deviated nasal septum; I10 Essential (primary) hypertension; E11.9 Type 2 diabetes mellitus without complications; G47.30 Sleep apnea, unspecified; R05 Cough; E78.00 Pure hypercholesterolemia, unspecified; Z88.1 Allergy status to other antibiotic agents; Z88.2 Allergy status to sulfonamides; Z88.8 Allergy status to other drugs, medicaments and biological substances; Z79.899 Other long term (current) drug therapy; Z79.82 Long term (current) use of aspirin
CPT/HCPCS: 30520; 31255; 31267; 87070; 87075; 87077; 87184; 87186; 87205; 88300; 88305; J0131; J1100; J2250; J2405; J3010; Q9968

== ENCOUNTER → 2021-02-22 | Outpatient (REF) | payer MEDICARE, OTHER ==
[~2021-02-22] MED LIST changes: +DOXY-350 PO; -LR 1,000 ML IV ONE; +PERCOCET PO
[2021-02-22 12:58] LABS: HEMATOCRIT 39.6 % (42.0-52.0); HEMOGLOBIN 13.4 g/dl (13.5-17.5); MEAN CORPUSCULAR HEMOGLOBIN 31.4 pg (27.0-33.0); MEAN CORPUSCULAR HGB CONC 33.8 g/dl (32.0-36.5); MEAN CORPUSCULAR VOLUME 92.7 fl (80.0-96.0); PLATELET COUNT, AUTOMATED 274 10^3/uL (150-450); RED BLOOD COUNT 4.27 10^6/uL (4.30-6.10); WHITE BLOOD COUNT 6.4 10^3/uL (4.0-10.0)
[2021-02-22 13:08] LABS: INR 0.97; PROTHROMBIN TIME 13.3 SECONDS (12.7-14.5)
[2021-02-22 13:27] LABS: ERYTHROCYTE SEDIMENTATION RATE 23 mm/hr (0-20)
[2021-02-22 13:47] LABS: ALBUMIN 3.9 GM/DL (3.2-5.2); ALT/SGPT 31 U/L (12-78); BILIRUBIN,TOTAL 0.4 MG/DL (0.2-1.0); BLOOD UREA NITROGEN 24 MG/DL (7-18); CARBON DIOXIDE LEVEL 26 MEQ/L (21-32); CHLORIDE LEVEL 104 MEQ/L (98-107); CREATININE FOR GFR 1.01 MG/DL (0.70-1.30); GLOMERULAR FILTRATION RATE > 60.0 (>49); GLUCOSE, FASTING 134 MG/DL (70-100); POTASSIUM SERUM 4.2 MEQ/L (3.5-5.1); SODIUM LEVEL 137 MEQ/L (136-145); TOTAL PROTEIN 7.2 GM/DL (6.4-8.2)
== END ==
LOC: M SFHCADAM 10:38
PROVIDERS: ATTEND Family Medicine
DX: Z01.818 Encounter for other preprocedural examination (principal); I11.9 Hypertensive heart disease without heart failure

== ENCOUNTER → 2021-02-22 | Outpatient (CLI) | payer MEDICARE, OTHER ==
--- NOTE | 2021-02-22 11:33 | REP ---
INDICATION: PRE OP. COMPARISON: Comparison chest x-ray May 29, 2018. TECHNIQUE: Two views.. FINDINGS: The lungs are well inflated and free of infiltrate. The pleural angles are sharp. The heart size is normal. Pulmonary vasculature is not increased. No significant bony abnormality is seen. There are fairly prominent spurs in the thoracic spine consistent with degenerative disc disease. IMPRESSION: No active disease.. <Electronically signed by Dominick Hernandez > 02/22/21 [id number]
== END ==
LOC: M ADAMS 10:44
PROVIDERS: ATTEND Physician Assistant
DX: Z01.818 Encounter for other preprocedural examination (principal); I11.9 Hypertensive heart disease without heart failure
CPT/HCPCS: 71046; 80053; 85027; 85610; 85652; G0463

== ENCOUNTER → 2021-08-30 | Outpatient (CLI) | payer MEDICARE, OTHER ==
[~2021-08-30] MED LIST changes: +LOSA100T45 PO; -LOSA100T50 PO
[2021-08-30 12:34] LABS: HEMATOCRIT 41.8 % (42.0-52.0); HEMOGLOBIN 13.9 g/dl (13.5-17.5); MEAN CORPUSCULAR HEMOGLOBIN 31.3 pg (27.0-33.0); MEAN CORPUSCULAR HGB CONC 33.3 g/dl (32.0-36.5); MEAN CORPUSCULAR VOLUME 94.1 fl (80.0-96.0); PLATELET COUNT, AUTOMATED 293 10^3/uL (150-450); RED BLOOD COUNT 4.44 10^6/uL (4.30-6.10); WHITE BLOOD COUNT 6.2 10^3/uL (4.0-10.0)
[2021-08-30 13:11] LABS: ALT/SGPT 27 U/L (12-78); BILIRUBIN,TOTAL 0.5 MG/DL (0.2-1.0); BLOOD UREA NITROGEN 22 MG/DL (7-18); CALCIUM LEVEL 9.1 MG/DL (8.8-10.2); CARBON DIOXIDE LEVEL 27 MEQ/L (21-32); CHLORIDE LEVEL 103 MEQ/L (98-107); CHOLESTEROL LEVEL 184 MG/DL (<200); CHOLESTEROL RISK RATIO 5.111 (<5); CREATININE FOR GFR 1.14 MG/DL (0.70-1.30); GLOMERULAR FILTRATION RATE > 60.0 (>49); GLUCOSE, FASTING 100 MG/DL (70-100); HDL CHOLESTEROL 36 MG/DL (>40); LDL CHOLESTEROL 116 MG/DL (<100); NON-HDL-C 148 MG/DL; POTASSIUM SERUM 4.6 MEQ/L (3.5-5.1); SODIUM LEVEL 138 MEQ/L (136-145); TOTAL PROTEIN 7.6 GM/DL (6.4-8.2); TRIGLYCERIDES LEVEL 162 MG/DL (<150)
[2021-08-30 13:37] LABS: HEMOGLOBIN A1c 5.5 %
== END ==
LOC: M WUC 08:38
PROVIDERS: ATTEND Family Medicine
DX: R73.03 Prediabetes (principal); G47.33 Obstructive sleep apnea (adult) (pediatric); E78.49 Other hyperlipidemia

== ENCOUNTER → 2021-10-26 | Outpatient (CLI) | payer MEDICARE, OTHER | LOC: M SLEEP 20:00 | PROVIDERS: ATTEND Physician Assistant | DX: G47.33 Obstructive sleep apnea (adult) (pediatric) (principal) ==

== ENCOUNTER → 2021-12-07 | Outpatient (CLI) | payer MEDICARE, OTHER ==
[2021-12-07 12:45] LABS: HEMATOCRIT 41.7 % (42.0-52.0); HEMOGLOBIN 14.1 g/dl (13.5-17.5); MEAN CORPUSCULAR HEMOGLOBIN 31.5 pg (27.0-33.0); MEAN CORPUSCULAR HGB CONC 33.8 g/dl (32.0-36.5); MEAN CORPUSCULAR VOLUME 93.3 fl (80.0-96.0); PLATELET COUNT, AUTOMATED 261 10^3/uL (150-450); RED BLOOD COUNT 4.47 10^6/uL (4.30-6.10); WHITE BLOOD COUNT 6.5 10^3/uL (4.0-10.0)
[2021-12-07 13:17] LABS: ALBUMIN 3.8 GM/DL (3.2-5.2); ALT/SGPT 29 U/L (12-78); BILIRUBIN,TOTAL 0.4 MG/DL (0.2-1.0); BLOOD UREA NITROGEN 21 MG/DL (7-18); CALCIUM LEVEL 8.6 MG/DL (8.8-10.2); CARBON DIOXIDE LEVEL 25 MEQ/L (21-32); CHLORIDE LEVEL 108 MEQ/L (98-107); CHOLESTEROL LEVEL 161 MG/DL (<200); CHOLESTEROL RISK RATIO 4.735 (<5); CREATININE FOR GFR 1.13 MG/DL (0.70-1.30); GLOMERULAR FILTRATION RATE > 60.0 (>49); GLUCOSE, FASTING 87 MG/DL (70-100); HDL CHOLESTEROL 34 MG/DL (>40); LDL CHOLESTEROL 105 MG/DL (<100); NON-HDL-C 127 MG/DL; POTASSIUM SERUM 4.4 MEQ/L (3.5-5.1); SODIUM LEVEL 139 MEQ/L (136-145); TOTAL PROTEIN 7.4 GM/DL (6.4-8.2); TRIGLYCERIDES LEVEL 108 MG/DL (<150)
[2021-12-07 13:36] LABS: HEMOGLOBIN A1c 5.8 %
== END ==
LOC: M WUC 10:47
PROVIDERS: ATTEND Family Medicine
DX: R73.03 Prediabetes (principal); G47.33 Obstructive sleep apnea (adult) (pediatric); E78.49 Other hyperlipidemia

== ENCOUNTER → 2022-05-01 | Outpatient (CLI) | payer MEDICARE, OTHER ==
[2022-05-01 18:19] LABS: HEMATOCRIT 40.4 % (42.0-52.0); HEMOGLOBIN 13.8 g/dl (13.5-17.5); MEAN CORPUSCULAR HEMOGLOBIN 32.4 pg (27.0-33.0); MEAN CORPUSCULAR HGB CONC 34.2 g/dl (32.0-36.5); MEAN CORPUSCULAR VOLUME 94.8 fl (80.0-96.0); PLATELET COUNT, AUTOMATED 247 10^3/uL (150-450); RED BLOOD COUNT 4.26 10^6/uL (4.30-6.10); WHITE BLOOD COUNT 5.3 10^3/uL (4.0-10.0)
[2022-05-01 18:31] LABS: INR 0.96
[2022-05-01 19:03] LABS: ERYTHROCYTE SEDIMENTATION RATE 23 mm/hr (0-20)
[2022-05-01 19:11] LABS: ALBUMIN 4.1 GM/DL (3.2-5.2); ALT/SGPT 32 U/L (12-78); BILIRUBIN,TOTAL 0.6 MG/DL (0.2-1.0); BLOOD UREA NITROGEN 17 MG/DL (7-18); CALCIUM LEVEL 9.2 MG/DL (8.8-10.2); CARBON DIOXIDE LEVEL 27 MEQ/L (21-32); CHLORIDE LEVEL 102 MEQ/L (98-107); CREATININE FOR GFR 1.18 MG/DL (0.70-1.30); GLOMERULAR FILTRATION RATE > 60.0 (>49); GLUCOSE, FASTING 166 MG/DL (70-100); POTASSIUM SERUM 4.2 MEQ/L (3.5-5.1); SODIUM LEVEL 136 MEQ/L (136-145); TOTAL PROTEIN 7.5 GM/DL (6.4-8.2)
== END ==
LOC: M WUC 11:27
PROVIDERS: ATTEND Orthopaedic Surgery
DX: M17.12 Unilateral primary osteoarthritis, left knee (principal); Z79.01 Long term (current) use of anticoagulants

== ENCOUNTER → 2022-06-04 | Outpatient (CLI) | payer MEDICARE, OTHER ==
[~2022-06-04] MED LIST changes: -DOXY-350 PO; +DOXY-444 PO
[2022-06-04 12:28] LABS: HEMATOCRIT 35.9 % (42.0-52.0); HEMOGLOBIN 11.7 g/dl (13.5-17.5); MEAN CORPUSCULAR HEMOGLOBIN 31.3 pg (27.0-33.0); MEAN CORPUSCULAR HGB CONC 32.6 g/dl (32.0-36.5); PLATELET COUNT, AUTOMATED 295 10^3/uL (150-450); RED BLOOD COUNT 3.74 10^6/uL (4.30-6.10); WHITE BLOOD COUNT 8.7 10^3/uL (4.0-10.0)
[2022-06-04 12:42] LABS: INR 1.29; PROTHROMBIN TIME 16.3 SECONDS (12.5-14.5)
[2022-06-04 12:43] LABS: PARTIAL THROMBOPLASTIN TIME 38.1 SECONDS (24.8-34.2)
[2022-06-04 13:11] LABS: BLOOD UREA NITROGEN 23 MG/DL (9-23); CALCIUM LEVEL 8.4 MG/DL (8.3-10.6); CARBON DIOXIDE LEVEL 28 MMOL/L (20-31); CHLORIDE LEVEL 102 MMOL/L (98-107); CREATININE FOR GFR 0.99 MG/DL (0.70-1.30); GLOMERULAR FILTRATION RATE > 60.0 (>49); GLUCOSE, FASTING 155 MG/DL (74-106); POTASSIUM SERUM 4.3 MMOL/L (3.5-5.1); SODIUM LEVEL 140 MMOL/L (136-145)
[2022-06-04 13:31] LABS: HEMOGLOBIN A1c 5.7 % (4.0-6.0)
== END ==
LOC: M WUC 10:38
PROVIDERS: ATTEND Family Medicine
DX: Z01.818 Encounter for other preprocedural examination (principal); I11.9 Hypertensive heart disease without heart failure; G47.33 Obstructive sleep apnea (adult) (pediatric); D64.9 Anemia, unspecified; R73.03 Prediabetes

== ENCOUNTER → 2022-12-06 | Outpatient (REF) | payer MEDICARE, OTHER ==
[~2022-12-06] MED LIST changes: -LOSA100T45 PO; +LOSA100T46 PO
[2022-12-06 14:04] LABS: HEMATOCRIT 41.4 % (42.0-52.0); HEMOGLOBIN 14.4 g/dl (13.5-17.5); MEAN CORPUSCULAR HGB CONC 34.8 g/dl (32.0-36.5); PLATELET COUNT, AUTOMATED 261 10^3/uL (150-450); WHITE BLOOD COUNT 5.3 10^3/uL (4.0-10.0)
[2022-12-06 14:10] LABS: ALBUMIN 4.1 G/DL (3.2-5.2); ALKALINE PHOSPHATASE 56 U/L (46-116); ALT/SGPT 21 U/L (7.0-40); AST/SGOT 18 U/L (<34); BILIRUBIN,TOTAL 0.5 MG/DL (0.3-1.2); BLOOD UREA NITROGEN 18 MG/DL (9-23); CALCIUM LEVEL 9.3 MG/DL (8.3-10.6); CARBON DIOXIDE LEVEL 28 MMOL/L (20-31); CHLORIDE LEVEL 105 MMOL/L (98-107); CHOLESTEROL LEVEL 179 MG/DL (<200); CHOLESTEROL RISK RATIO 5.18 (<5); CREATININE FOR GFR 0.95 MG/DL (0.70-1.30); GLOMERULAR FILTRATION RATE > 60.0 (>49); GLUCOSE, FASTING 107 MG/DL (74-106); HDL CHOLESTEROL 34.5 MG/DL (>40); LDL CHOLESTEROL 110.3 MG/DL (<100); NON-HDL-C 144.5 MG/DL; POTASSIUM SERUM 4.8 MMOL/L (3.5-5.1); SODIUM LEVEL 139 MMOL/L (136-145); TOTAL PROTEIN 7.1 G/DL (5.7-8.2); TRIGLYCERIDES LEVEL 171 MG/DL (<150)
[2022-12-06 14:28] LABS: HEMOGLOBIN A1c 5.8 % (4.0-6.0)
== END ==
LOC: M LABWUC 13:03
PROVIDERS: ATTEND Family Medicine
DX: I11.9 Hypertensive heart disease without heart failure (principal); R73.03 Prediabetes; D64.9 Anemia, unspecified; Z12.5 Encounter for screening for malignant neoplasm of prostate
CPT/HCPCS: 36415; 80053; 80061; 83036; 85027; G0103

== ENCOUNTER → 2023-03-21 | Outpatient (REF) | payer MEDICARE, OTHER | LOC: M SFHCDERM 12:44 | PROVIDERS: ATTEND Nurse Practitioner Family | DX: L82.1 Other seborrheic keratosis (principal) ==

== ENCOUNTER → 2023-07-03 | Outpatient (CLI) | payer MEDICARE, OTHER | LOC: M RAD 10:32 | PROVIDERS: ATTEND Student in an Organized Health Care Education/Training Program | DX: R22.32 Localized swelling, mass and lump, left upper limb (principal) ==

== ENCOUNTER → 2023-08-09 | Outpatient (REF) | payer MEDICARE, OTHER ==
[2023-08-09 13:36] LABS: BLOOD UREA NITROGEN 21 MG/DL (9-23); CREATININE FOR GFR 0.97 MG/DL (0.70-1.30); GLOMERULAR FILTRATION RATE > 60.0 (>49)
== END ==
LOC: M LABWUC 12:11
PROVIDERS: ATTEND Student in an Organized Health Care Education/Training Program
DX: M67.442 Ganglion, left hand (principal)

== ENCOUNTER → 2023-08-14 | Outpatient (CLI) | payer MEDICARE, OTHER ==
[~2023-08-14] MED LIST changes: +PROHANCE 279.3MG/ML 15ML VIAL ONE; +PROHANCE 279.3MG/ML 5ML VIAL ONE
== END ==
LOC: M PLAIMG 13:10
PROVIDERS: ATTEND Student in an Organized Health Care Education/Training Program
DX: M67.442 Ganglion, left hand (principal); R93.89 Abnormal findings on diagnostic imaging of other specified body structures
CPT/HCPCS: 73220; A9576

== ENCOUNTER → 2023-09-19 | Outpatient (REF) | payer MEDICARE, OTHER ==
[~2023-09-19] MED LIST changes: -PROHANCE 279.3MG/ML 15ML VIAL ONE; -PROHANCE 279.3MG/ML 5ML VIAL ONE
== END ==
LOC: M SFHCDERM 12:35
PROVIDERS: ATTEND Nurse Practitioner Family
DX: L57.0 Actinic keratosis (principal)

== ENCOUNTER → 2023-10-25 | Outpatient (CLI) | payer MEDICARE, OTHER ==
[2023-10-25 18:32] LABS: PSA SCREENING 0.44 NG/ML (< 4.00)
[2023-10-25 18:34] LABS: ALKALINE PHOSPHATASE 48 U/L (46-116); ALT/SGPT 30 U/L (7.0-40); AST/SGOT 25 U/L (<34); BILIRUBIN,TOTAL 0.7 MG/DL (0.3-1.2); BLOOD UREA NITROGEN 20 MG/DL (9-23); CALCIUM LEVEL 9.3 MG/DL (8.3-10.6); CARBON DIOXIDE LEVEL 28 MMOL/L (20-31); CHLORIDE LEVEL 106 MMOL/L (98-107); CHOLESTEROL LEVEL 168 MG/DL (<200); CHOLESTEROL RISK RATIO 4.59 (<5); CREATININE FOR GFR 0.94 MG/DL (0.70-1.30); GLOMERULAR FILTRATION RATE > 60.0 (>49); GLUCOSE, FASTING 114 MG/DL (74-106); HDL CHOLESTEROL 36.6 MG/DL (>40); LDL CHOLESTEROL 98.4 MG/DL (<100); NON-HDL-C 131.4 MG/DL; POTASSIUM SERUM 4.3 MMOL/L (3.5-5.1); SODIUM LEVEL 139 MMOL/L (136-145); TRIGLYCERIDES LEVEL 165 MG/DL (<150)
[2023-10-25 18:44] LABS: HEMOGLOBIN A1c 5.9 % (4.0-6.0)
== END ==
LOC: M WUC 11:26
PROVIDERS: ATTEND Family Medicine
DX: E78.5 Hyperlipidemia, unspecified (principal); I11.9 Hypertensive heart disease without heart failure; R73.03 Prediabetes; Z12.5 Encounter for screening for malignant neoplasm of prostate
CPT/HCPCS: 36415; 80053; 80061; 83036; G0103

== ENCOUNTER → 2024-07-31 | Outpatient (REF) | payer MEDICARE, OTHER ==
[~2024-07-31] MED LIST changes: +DOXY-440 PO; -DOXY-444 PO
[2024-07-31 15:07] LABS: BLOOD UREA NITROGEN 21 MG/DL (9-23); CALCIUM LEVEL 9.6 MG/DL (8.3-10.6); CARBON DIOXIDE LEVEL 28 MMOL/L (20-31); CHLORIDE LEVEL 104 MMOL/L (98-107); CREATININE FOR GFR 0.97 MG/DL (0.70-1.30); GLOMERULAR FILTRATION RATE > 60.0 (>49); GLUCOSE, FASTING 131 MG/DL (74-106); POTASSIUM SERUM 4.4 MMOL/L (3.5-5.1); SODIUM LEVEL 141 MMOL/L (136-145)
== END ==
LOC: M SFHCADAM 10:45
PROVIDERS: ATTEND Family Medicine
DX: Z01.818 Encounter for other preprocedural examination (principal)

== ENCOUNTER → 2025-01-25 | Outpatient (CLI) | payer MEDICARE, OTHER ==
[2025-01-25 14:05] LABS: PLATELET COUNT, AUTOMATED 240 10^3/uL (150-450)
[2025-01-25 14:13] LABS: ESTIMATED AVERAGE GLUCOSE 120.0 MG/DL (60-110)
[2025-01-25 14:34] LABS: ALT/SGPT 23.0 U/L (7.0-40); AST/SGOT 22.0 U/L (<34); CALCIUM LEVEL 9.2 MG/DL (8.3-10.6); CARBON DIOXIDE LEVEL 26.0 MMOL/L (20-31); CHLORIDE LEVEL 103.0 MMOL/L (98-107); CHOLESTEROL LEVEL 189.0 MG/DL (<200); CHOLESTEROL RISK RATIO 5.25 (<5); CREATININE FOR GFR 1.0 MG/DL (0.70-1.30); GLOMERULAR FILTRATION RATE 81.5 (>49); LDL CHOLESTEROL 107.4 MG/DL (<100); NON-HDL-C 153.0 MG/DL; POTASSIUM SERUM 4.6 MMOL/L (3.5-5.1); PSA SCREENING 0.62 NG/ML (< 4.00); SODIUM LEVEL 141.0 MMOL/L (136-145); TRIGLYCERIDES LEVEL 228.0 MG/DL (<150)
== END ==
LOC: M WUC 11:01
PROVIDERS: ATTEND Family Medicine
DX: E78.5 Hyperlipidemia, unspecified (principal); Z12.5 Encounter for screening for malignant neoplasm of prostate; R73.03 Prediabetes; J84.10 Pulmonary fibrosis, unspecified
CPT/HCPCS: 36415; 80053; 80061; 83036; 85027; G0103

== ENCOUNTER → 2025-04-28 | Outpatient (REF) | payer MEDICARE, OTHER ==
[~2025-04-28] MED LIST changes: -EZET10TA21 PO; +EZET10TA57 PO
== END ==
LOC: M SFHCDERM 13:22
PROVIDERS: ATTEND Nurse Practitioner Family
DX: L82.1 Other seborrheic keratosis (principal)

== ENCOUNTER → 2025-06-13 | Outpatient (CLI) | payer MEDICARE, OTHER | LOC: M SLEEP 20:00 | PROVIDERS: ATTEND Physician Assistant | DX: G47.33 Obstructive sleep apnea (adult) (pediatric) (principal) ==